=== PATIENT | female | born 1980 | race American Indian/Alaskan Native ===

== ENCOUNTER 2016-07-20 23:48 | Inpatient (IN) | payer BC, OTHER ==
[2016-07-21] MEDS ORDERED: Citric Acid/Sodium Citrate Solution 30 ML Cup ONE (00:08)
[2016-07-21] MEDS ORDERED: Lactated Ringers 1,000 ML ONE (00:08)
[2016-07-21] MEDS ORDERED: Metoclopramide 10 MG/2 ML SDV ONE (00:08)
[2016-07-21] MEDS ORDERED: Citric Acid/Sodium Citrate Solution 30 ML Cup PO ONE (00:20)
[2016-07-21] MEDS ORDERED: Metoclopramide 10 MG/2 ML SDV IVPUSH ONE (00:20)
[2016-07-21] MEDS ORDERED: Sodium Chloride 0.9% 10 ML Syringe FLUSH PRN (00:20)
--- NOTE | 2016-07-21 00:25 | PCM.LDHP ---
L&D History of Present Illness - General Date of Service: 07/21/16 Admit Problem/Dx: Patient Status Order with Admit Dx/Problem 07/21/16 00:20 Patient Status [ADT] Routine Patient Status: Admit to Inpatient Admission Diagnosis/Problem: Normal Reason for Admit: normal Nurse Unit Type: Labor and Delivery Admitting Physician: Telma Cosme Attending Physician: Telma Cosme Medicare 96 Hour Certification Statement: This Patient is Admitted for Inpatient Services and is Medically Appropriate and Meets Medical Necessity for Inpatient Admission. I Reasonably Expect the Patient Will Require Inpatient Services That Span a Period of Time Over 2 Midnights. My Rationale for Medically Necessary Inpatient Care Will Be Found in the Admission History & Physical and Progress Notes. I Reasonably Expect the Patient to be Discharged or Transferred Within 96 Hours After Admission to This [facility]. Admission Diagnosis/Problem Admission Diagnosis/Problem Normal Source of Information: Patient History Limitations: Reports: No limitations - History of Present Illness Introduction:: Patient is a 36 y/o - LC6 at 39 2/7 wks gestation who presents in labor and with SROM. States that this has had care with [facility]. Did have difficulty securing a referral out and so has not established care with an Ob in [facility], etc. Reports has been uncomplicated up to this point. Ob history as below. 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 Para: 6 LMP (Approximate): Endocrine/Metabolic History: Reports: Obesity/BMI 30+ - Past Surgical History GI Surgical History: Reports: Appendectomy, Cholecystectomy Female Surgical History: Reports: section (x4) Musculoskeletal Surgical History: Reports: Shoulder surgery Other Musculoskeletal Surgeries/Procedures:: hx of arthroscopy surgery on her shoulder for an infection Social & Family History - Family History Family Medical History: Noncontributory - Tobacco Use Smoking Status *Q: Former Smoker Packs/Tins Daily: 0 Used Tobacco, but Quit: Yes Month Tobacco Last Used: 2 years ago Second Hand Smoke Exposure: No - Caffeine Use Caffeine Use: Reports: Soda - Alcohol Use Alcohol Use History: No Days Per Week of Alcohol Use: 0 - Recreational Drug Use Recreational Drug Use: No H&P Review of Systems - Review of Systems: Review Of Systems: See Below General: Reports: no symptoms Pulmonary: Reports: No Symptoms Cardiovascular: Reports: no symptoms Gastrointestinal: Reports: No symptoms Genitourinary: Reports: no symptoms Musculoskeletal: Reports: no symptoms Neurological: Reports: No Symptoms L&D Exam - Exam Exam: See Below - Vital Signs Weight: 113.398 kg - OB Specific Contraction Intensity: Moderate to Strong movement: active heart tones: present heart tones per min: 145 Heart Rate (FHR) Variability: Moderate (6-25 bmp) Presentation: Vertex - Byrne Score Byrne Score Cervix Position: Midposition Byrne Score Consistency: Soft Byrne Score Effacement: >80% Byrne Score Dilation: > 5 cm Byrne Score 's Station: -2 Byrne Score Total: 10 - Exam General: alert, oriented, cooperative Lungs: Clear to auscultation, Normal respiratory effort Cardiovascular: regular rate, regular rhythm Abdomen: soft Genitourinary: Normal external exam Extremities: normal inspection Skin: warm, dry, intact - Patient Data Lab Results last 24 hrs: Laboratory Results - last 24 hr 07/21/16 Range/Units 00:10 WBC 18.58 H (3.98-10.04) K/mm3 RBC 4.28 (3.98-5.22) M/mm3 Hgb 10.9 L (11.2-15.7) gm/L Hct 33.9 L (34.1-44.9) % MCV 79.2 L (79.4-94.8) fl MCH 25.5 L (25.6-32.2) pg MCHC 32.2 (32.2-35.5) g/dl RDW Std Deviation 41.2 (36.4-46.3) fL Plt Count 272 (182-369) K/mm3 MPV 11.3 (9.4-12.3) fl Neut % (Auto) 70.5 (34.0-71.1) % Lymph % (Auto) 21.8 (19.3-51.7) % Cochran % (Auto) 6.5 (4.7-12.5) % Eos % (Auto) 0.4 L (0.7-5.8) Baso % (Auto) 0.1 (0.1-1.2) % Neut # 13.09 H (1.56-6.13) K/mm3 Lymph # 4.05 H (1.18-3.74) K/mm3 Cochran # 1.21 H (0.24-0.36) K/mm3 Eos # 0.08 (0.04-0.36) K/mm3 Baso # 0.02 (0.01-0.08) K/mm3 Result Diagrams: 07/21/16 00:10 - Problem List (1) 39 weeks gestation of SNOMED Code(s): 94598877 ICD Code: Z3A.39 - 39 WEEKS GESTATION OF Status: Acute Current Visit: Yes (2) History of SNOMED Code(s): 979668877 ICD Code: Z98.891 - HISTORY OF UTERINE SCAR FROM PREVIOUS SURGERY Status: Acute Current Visit: Yes (3) Normal labor SNOMED Code(s): 52205957 ICD Code: O80 - ENCOUNTER FOR FULL-TERM UNCOMPLICATED DELIVERY; Z37.9 - OUTCOME OF DELIVERY, UNSPECIFIED Status: Acute Current Visit: Yes (4) SROM (spontaneous rupture of membranes) SNOMED Code(s): 234321145 ICD Code: BCB3585 - Status: Acute Current Visit: Yes (5) Thick meconium stained amniotic fluid SNOMED Code(s): 299399279 ICD Code: P96.83 - MECONIUM STAINING Status: Acute Current Visit: Yes Problem List Initiated/Reviewed/Updated: Yes Orders Last 24hrs: Active Orders 24 hr Category Date Time Status Patient Status [ADT] Routine ADT 07/21/16 00:20 Ordered Communication Order [RC] ROUTINE Care 07/21/16 00:20 Ordered Heart Tones [RC] PER UNIT ROUTINE Care 07/21/16 00:20 Ordered Peripheral IV Care [RC] . DIRECTED Care 07/21/16 00:20 Ordered Procedure Site Prep Instruct [RC] ASDIRECTED Care 07/21/16 00:20 Ordered Verify Patient Consent Obtain [RC] PER UNIT ROUTINE Care 07/21/16 00:20 Ordered Vital Signs [RC] PFP Care 07/21/16 00:20 Ordered Nothing Per Oral Diet [DIET] Diet 07/21/16 Breakfast Ordered CBC WITH AUTO DIFF [HEME] Routine Lab 07/21/16 00:10 Received TYPE AND SCREEN [BBK] Stat Lab 07/21/16 00:10 Received Citric Acid/Sodium Citrate [Bicitra Solution] Med 07/21/16 00:20 Once 30 ml PO ONETIME ONE Lactated Ringers @ 125 MLS/HR(1000ml) Med 07/21/16 00:30 Ordered Lactated Ringers [Ringers, Lactated] 1,000 ml IV ASDIRECTED Metoclopramide [Reglan] Med 07/21/16 00:20 Once 10 mg IVPUSH ONETIME ONE Oxytocin [Pitocin] 20 unit Med 07/21/16 00:30 Ordered Lactated Ringers [Ringers, Lactated] 1,000 ml IV TITRATE Sodium Chloride 0.9% [Saline Flush] Med 07/21/16 00:20 Ordered 10 ml FLUSH ASDIRECTED PRN ceFAZolin [Ancef] 2 gm Med 07/21/16 00:20 Ordered Premix Bag 1 bag IV ONETIME Peripheral IV Insertion Adult [OM.PC] Routine Oth 07/21/16 00:20 Ordered Schedule Procedure [COMM] Per Unit Routine Oth 07/21/16 00:20 Ordered Resuscitation Status Routine Resus Stat 07/21/16 00:20 Ordered Medication Orders Citric Acid/Sodium Citrate (Bicitra Solution) 30 ml PO ONETIME ONE Stop: 07/21/16 00:21 Lactated Ringer's (Ringers, Lactated) 1,000 mls @ 125 mls/hr IV ASDIRECTED LENA Oxytocin 20 unit/ Lactated (Ringer's) 1,002 mls @ 500 mls/hr IV TITRATE LENA PRN Reason: Protocol Cefazolin Sodium/Dextrose 2 gm (/ Premix) 50 mls @ 100 mls/hr IV ONETIME ONE Stop: 07/21/16 00:49 Metoclopramide HCl (Reglan) 10 mg IVPUSH ONETIME ONE Stop: 07/21/16 00:21 Sodium Chloride (Saline Flush) 10 ml FLUSH ASDIRECTED PRN PRN Reason: Keep Vein Open Assessment/Plan Comment:: 36 y/o LC 6 at 39 weeks gestation presents with labor/SROM in setting of 4 prior c-sections; recommend proceeding to repeat * CBC and T&S * NPO * Ancef OCTOR * Consent reviewed and signed * Anesthesia and Pediatrics made aware * Will work on obtaining records in AM
[2016-07-21] MEDS ORDERED: ceFAZolin 2 GM in Premix Bag 1 BAG IV ONE (00:30)
[2016-07-21] MEDS ORDERED: Morphine PF 10 MG/10 ML SDV ONE (00:33)
[2016-07-21] MEDS ORDERED: Ondansetron 4 MG/2 ML SDV ONE (00:33)
[2016-07-21] MEDS ORDERED: Oxytocin 10 Units/1 ML SDV ONE (00:33)
[2016-07-21] MEDS ORDERED: ceFAZolin 1 GM Vial ONE (00:33)
[2016-07-21] MEDS ORDERED: Ondansetron 4 MG/2 ML SDV IVPUSH PRN (01:25)
[2016-07-21] MEDS ORDERED: fentaNYL 100 MCG/2 ML SDV IVPUSH PRN (01:25)
[2016-07-21] MEDS ORDERED: diphenhydrAMINE 50 MG/ML SDV IVPUSH PRN ×2 (01:25→02:16)
[2016-07-21] MEDS ORDERED: Meperidine PF 50 MG/ML Syringe ONE (01:30)
--- NOTE | 2016-07-21 01:38 | PCM.PREANE ---
Preanesthetic Assessment - Anesthesia/Transfusion/Family Hx Anesthesia History: Prior Anesthesia Without Reaction Type of Anesthesia Reaction: Unknown Family History of Anesthesia Reaction: No Transfusion History: Prior Transfusion Without Reaction Type of Transfusion Reactions: Reports: Unknown Intubation History: Unknown - Review of Systems General: No Symptoms Pulmonary: No Symptoms Cardiovascular: No Symptoms Gastrointestinal: No symptoms Neurological: No Symptoms Other: Reports: None - Physical Assessment NPO Status Date: 07/20/16 NPO Status Time: 21:00 Pulse: 98 O2 Sat by Pulse Oximetry: 98 Respiratory Rate: 22 Blood Pressure: 148/98 Height: 1.63 m Weight: 113.398 kg - Lab Values: Laboratory Last Values WBC 18.58 K/mm3 (3.98-10.04) H 07/21/16 00:10 RBC 4.28 M/mm3 (3.98-5.22) 07/21/16 00:10 Hgb 10.9 gm/L (11.2-15.7) L 07/21/16 00:10 Hct 33.9 % (34.1-44.9) L 07/21/16 00:10 MCV 79.2 fl (79.4-94.8) L 07/21/16 00:10 MCH 25.5 pg (25.6-32.2) L 07/21/16 00:10 MCHC 32.2 g/dl (32.2-35.5) 07/21/16 00:10 RDW Std Deviation 41.2 fL (36.4-46.3) 07/21/16 00:10 Plt Count 272 K/mm3 (182-369) 07/21/16 00:10 MPV 11.3 fl (9.4-12.3) 07/21/16 00:10 Neut % (Auto) 70.5 % (34.0-71.1) 07/21/16 00:10 Lymph % (Auto) 21.8 % (19.3-51.7) 07/21/16 00:10 Petroleum % (Auto) 6.5 % (4.7-12.5) 07/21/16 00:10 Eos % (Auto) 0.4 (0.7-5.8) L 07/21/16 00:10 Baso % (Auto) 0.1 % (0.1-1.2) 07/21/16 00:10 Neut # 13.09 K/mm3 (1.56-6.13) H 07/21/16 00:10 Lymph # 4.05 K/mm3 (1.18-3.74) H 07/21/16 00:10 Petroleum # 1.21 K/mm3 (0.24-0.36) H 07/21/16 00:10 Eos # 0.08 K/mm3 (0.04-0.36) 07/21/16 00:10 Baso # 0.02 K/mm3 (0.01-0.08) 07/21/16 00:10 Manual Slide Review Abnormal smear 07/21/16 00:10 Blood Type A POSITIVE 07/21/16 00:10 Gel Antibody Screen Negative 07/21/16 00:10 - Allergies Allergies/Adverse Reactions: Allergies Allergy/AdvReac Type Severity Reaction Status Date / Time No Known Allergies Allergy Verified 02/01/16 23:34 PreAnesthesia Questionnaire - Past Health History Medical/Surgical History: Denies Medical/Surgical History HEENT History: Reports: Other (see below) Other HEENT History: wears glasses Cardiovascular History: Reports: None Respiratory History: Reports: None Gastrointestinal History: Reports: Chronic constipation, Other (see below) 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: Other OB/BYN History: cysts on ovaries;blood clot to ovary, 8, para 6 Musculoskeletal History: Reports: None Endocrine/Metabolic History: Reports: Obesity/BMI 30+ Oncologic (Cancer) History: Reports: None - Past Surgical History HEENT Surgical History: Reports: None GI Surgical History: Reports: Cholecystectomy Female Surgical History: Reports: section Endocrine Surgical History: Reports: None Musculoskeletal Surgical History: Reports: Shoulder surgery Other Musculoskeletal Surgeries/Procedures:: hx of arthroscopy surgery on her shoulder for an infection - History Comment History Comment: multivitamin for home meds- 16 weeks - SUBSTANCE USE Smoking Status *Q: Former Smoker Tobacco Use Within Last Twelve Months: Cigarettes Second Hand Smoke Exposure: No Days Per Week of Alcohol Use: 0 Recreational Drug Use History: No - CURRENT (IN HOUSE) MEDS Current Meds: Current Medications Lactated Ringer's (Ringers, Lactated) 1,000 mls @ 125 mls/hr IV ASDIRECTED LENA Oxytocin 20 unit/ Lactated (Ringer's) 1,002 mls @ 500 mls/hr IV TITRATE LENA PRN Reason: Protocol Sodium Chloride (Saline Flush) 10 ml FLUSH ASDIRECTED PRN PRN Reason: Keep Vein Open Discontinued Medications Cefazolin Sodium (Ancef) Confirm Administered Dose 2 gm .ROUTE .STK-MED ONE Stop: 07/21/16 00:34 Citric Acid/Sodium Citrate (Bicitra Solution) Confirm Administered Dose 30 ml .ROUTE .STK-MED ONE Stop: 07/21/16 00:09 Citric Acid/Sodium Citrate (Bicitra Solution) 30 ml PO ONETIME ONE Stop: 07/21/16 00:21 Lactated Ringer's (Ringers, Lactated) Confirm Administered Dose 1,000 mls @ as directed .ROUTE .STK-MED ONE Stop: 07/21/16 00:09 Cefazolin Sodium/Dextrose 2 gm (/ Premix) 50 mls @ 100 mls/hr IV ONETIME ONE Stop: 07/21/16 00:59 Meperidine HCl (Demerol) Confirm Administered Dose 50 mg .ROUTE .STK-MED ONE Stop: 07/21/16 01:31 Metoclopramide HCl (Reglan) Confirm Administered Dose 10 mg .ROUTE .STK-MED ONE Stop: 07/21/16 00:09 Metoclopramide HCl (Reglan) 10 mg IVPUSH ONETIME ONE Stop: 07/21/16 00:21 Morphine Sulfate (Duramorph Pf) Confirm Administered Dose 10 mg .ROUTE .STK-MED ONE Stop: 07/21/16 00:34 Ondansetron HCl (Zofran) Confirm Administered Dose 4 mg .ROUTE .STK-MED ONE Stop: 07/21/16 00:34 Oxytocin (Pitocin) Confirm Administered Dose 10 unit .ROUTE .STK-MED ONE Stop: 07/21/16 00:34 Preanesthetic Assessment - ANESTHESIA/TRANSFUSION/FAMILY HX Anesthesia/Transfusion History: Prior Anesthesia (no prob), Prior Transfusion - PHYSICAL ASSESSMENT Height: 1.63 m Weight: 113.398 kg - LAB Values: Laboratory Last Values WBC 18.58 K/mm3 (3.98-10.04) H 07/21/16 00:10 RBC 4.28 M/mm3 (3.98-5.22) 07/21/16 00:10 Hgb 10.9 gm/L (11.2-15.7) L 07/21/16 00:10 Hct 33.9 % (34.1-44.9) L 07/21/16 00:10 MCV 79.2 fl (79.4-94.8) L 07/21/16 00:10 MCH 25.5 pg (25.6-32.2) L 07/21/16 00:10 MCHC 32.2 g/dl (32.2-35.5) 07/21/16 00:10 RDW Std Deviation 41.2 fL (36.4-46.3) 07/21/16 00:10 Plt Count 272 K/mm3 (182-369) 07/21/16 00:10 MPV 11.3 fl (9.4-12.3) 07/21/16 00:10 Neut % (Auto) 70.5 % (34.0-71.1) 07/21/16 00:10 Lymph % (Auto) 21.8 % (19.3-51.7) 07/21/16 00:10 Petroleum % (Auto) 6.5 % (4.7-12.5) 07/21/16 00:10 Eos % (Auto) 0.4 (0.7-5.8) L 07/21/16 00:10 Baso % (Auto) 0.1 % (0.1-1.2) 07/21/16 00:10 Neut # 13.09 K/mm3 (1.56-6.13) H 07/21/16 00:10 Lymph # 4.05 K/mm3 (1.18-3.74) H 07/21/16 00:10 Petroleum # 1.21 K/mm3 (0.24-0.36) H 07/21/16 00:10 Eos # 0.08 K/mm3 (0.04-0.36) 07/21/16 00:10 Baso # 0.02 K/mm3 (0.01-0.08) 07/21/16 00:10 Manual Slide Review Abnormal smear 07/21/16 00:10 Blood Type A POSITIVE 07/21/16 00:10 Gel Antibody Screen Negative 07/21/16 00:10 - ALLERGIES Allergies/Adverse Reactions: Allergies Allergy/AdvReac Type Severity Reaction Status Date / Time No Known Allergies Allergy Verified 02/01/16 23:34
--- NOTE | 2016-07-21 01:56 | PCM.OPNOTE ---
- General Post-Op/Procedure Note Date of Surgery/Procedure: 07/21/16 Operative Procedure(s): Repeat low transverse Findings: * Minimal adhesions between the rectus and fascia. Somewhat difficult to find peritoneal entry due to adhesions between the rectus muscles. Minimal adhesions between bladder and uterus. Lower uterine segment relatively well preserved given history of 4 prior c-sections. * Baby girl in a vertex presentation with APGARS of 5 & 8, weight of 8 lbs 0 oz Pre Op Diagnosis: Hx of x4. Labor / SROM. Thick meconium stained amniotic fluid. Morbid obesity Post-Op Diagnosis: Same Anesthesia Technique: Spinal Primary Surgeon: Telma Cosme Secondary Surgeon: Allison Potter Anesthesia Provider: Uli Romero Pathology: Cord blood collected. Placenta discarded. Fluid Replacement, Intraop: 1,500 Output, Urine Amount: 225 EBL in mLs: 800 Complications: None Condition: Good Free Text/Narrative:: The risks, benefits, indications, potential complications, and alternatives were explained to the patient and informed consent obtained. After induction of anesthesia, the patient was placed in a supine position and then draped and prepped in the usual sterile manner. A Pfannenstiel incision was made and carried down through the subcutaneous tissue to the fascia. Fascial incision was made and extended transversely. The fascia was from the underlying rectus tissue superiorly and inferiorly. The peritoneum was identified and entered. Peritoneal incision was extended longitudinally. The utero-vesical peritoneal reflection was incised transversely and the bladder flap was bluntly freed from the lower uterine segment. A low transverse uterine incision was made sharply with a scalpel and extended bluntly in a cephalocaudad direction. A baby girl was delivered from a vertex presentation with APGARS as above. After the umbilical cord was clamped and cut cord blood was obtained for evaluation. The placenta was removed intact and appeared normal. The uterus was exteriorized and cleared of clots. The uterine outline, tubes and ovaries appeared normal. The uterine incision was closed with running locked sutures of 0 Vicryl. Hemostasis was obtained with a second imbricating layer of 0 vicryl. The uterus was then placed back into the abdomen. The infracolic gutters were cleared of blood clots. The fascia was then reapproximated with running sutures of 1 PDS. The sucutaneous tissue was irrigated with sterile warm normal saline, hemostasis obtained with cautery. This layer was closed with a running 0 vicryl. The skin was reapproximated with running Subcuticular 4-0 monocryl sutures. Instrument, sponge, and needle counts were correct prior the abdominal closure and at the conclusion of the case.
--- NOTE | 2016-07-21 01:56 | PCM.PREANE ---
Preanesthetic Assessment - Anesthesia/Transfusion/Family Hx Anesthesia History: Prior Anesthesia Without Reaction Family History of Anesthesia Reaction: No Transfusion History: Prior Transfusion Without Reaction Type of Transfusion Reactions: Reports: Unknown Intubation History: Unknown - Review of Systems General: No Symptoms Pulmonary: No Symptoms Cardiovascular: No Symptoms Gastrointestinal: No symptoms Neurological: No Symptoms Other: Reports: None - Physical Assessment NPO Status Date: 07/20/16 NPO Status Time: 21:00 Pulse: 98 O2 Sat by Pulse Oximetry: 98 Respiratory Rate: 22 Blood Pressure: 148/98 Vital Signs: Last Vital Signs Temp Pulse 98 07/21/16 01:38 Resp 22 H 07/21/16 01:38 BP 148/98 H 07/21/16 01:38 Pulse Ox 98 07/21/16 01:38 Height: 1.63 m Weight: 113.398 kg ASA Class: 2E Mental Status: Alert & Oriented x3 Airway Class: Mallampati = 2 Dentition: Reports: Normal Dentition Thyro-Mental Finger Breadths: 3 Mouth Opening Finger Breadths: 3 ROM/Head Extension: Full Lungs: Clear to auscultation, Normal respiratory effort Cardiovascular: Regular Rate, Regular Rhythm - Lab Values: Laboratory Last Values WBC 18.58 K/mm3 (3.98-10.04) H 07/21/16 00:10 RBC 4.28 M/mm3 (3.98-5.22) 07/21/16 00:10 Hgb 10.9 gm/L (11.2-15.7) L 07/21/16 00:10 Hct 33.9 % (34.1-44.9) L 07/21/16 00:10 MCV 79.2 fl (79.4-94.8) L 07/21/16 00:10 MCH 25.5 pg (25.6-32.2) L 07/21/16 00:10 MCHC 32.2 g/dl (32.2-35.5) 07/21/16 00:10 RDW Std Deviation 41.2 fL (36.4-46.3) 07/21/16 00:10 Plt Count 272 K/mm3 (182-369) 07/21/16 00:10 MPV 11.3 fl (9.4-12.3) 07/21/16 00:10 Neut % (Auto) 70.5 % (34.0-71.1) 07/21/16 00:10 Lymph % (Auto) 21.8 % (19.3-51.7) 07/21/16 00:10 Charlton % (Auto) 6.5 % (4.7-12.5) 07/21/16 00:10 Eos % (Auto) 0.4 (0.7-5.8) L 07/21/16 00:10 Baso % (Auto) 0.1 % (0.1-1.2) 07/21/16 00:10 Neut # 13.09 K/mm3 (1.56-6.13) H 07/21/16 00:10 Lymph # 4.05 K/mm3 (1.18-3.74) H 07/21/16 00:10 Charlton # 1.21 K/mm3 (0.24-0.36) H 07/21/16 00:10 Eos # 0.08 K/mm3 (0.04-0.36) 07/21/16 00:10 Baso # 0.02 K/mm3 (0.01-0.08) 07/21/16 00:10 Manual Slide Review Abnormal smear 07/21/16 00:10 Blood Type A POSITIVE 07/21/16 00:10 Gel Antibody Screen Negative 07/21/16 00:10 - Allergies Allergies/Adverse Reactions: Allergies Allergy/AdvReac Type Severity Reaction Status Date / Time No Known Allergies Allergy Verified 02/01/16 23:34 - Blood Blood Available: No Product(s) Available: None - Acknowledgements Anesthesia Type Planned: Spinal Pt an Appropriate Candidate for the Planned Anesthesia: Yes Alternatives and Risks of Anesthesia Discussed w Pt/Guardian: Yes Pt/Guardian Understands and Agrees with Anesthesia Plan: Yes PreAnesthesia Questionnaire - Past Health History Medical/Surgical History: Denies Medical/Surgical History HEENT History: Reports: Other (see below) Other HEENT History: wears glasses Cardiovascular History: Reports: None Respiratory History: Reports: None Gastrointestinal History: Reports: Chronic constipation, Other (see below) 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: Other OB/BYN History: cysts on ovaries;blood clot to ovary, 8, para 6 Musculoskeletal History: Reports: None Endocrine/Metabolic History: Reports: Obesity/BMI 30+ Oncologic (Cancer) History: Reports: None - Past Surgical History GI Surgical History: Reports: Appendectomy, Cholecystectomy Female Surgical History: Reports: section (x4) Musculoskeletal Surgical History: Reports: Shoulder surgery Other Musculoskeletal Surgeries/Procedures:: hx of arthroscopy surgery on her shoulder for an infection - History Comment History Comment: multivitamin for home meds- 16 weeks - SUBSTANCE USE Smoking Status *Q: Former Smoker Tobacco Use Within Last Twelve Months: Cigarettes Second Hand Smoke Exposure: No Days Per Week of Alcohol Use: 0 Recreational Drug Use History: No - CURRENT (IN HOUSE) MEDS Current Meds: Current Medications Diphenhydramine HCl (Benadryl) 25 mg IVPUSH Q6H PRN PRN Reason: Pruritis Lactated Ringer's (Ringers, Lactated) 1,000 mls @ 125 mls/hr IV ASDIRECTED LENA Oxytocin 20 unit/ Lactated (Ringer's) 1,002 mls @ 500 mls/hr IV TITRATE LENA PRN Reason: Protocol Ondansetron HCl (Zofran) 4 mg IVPUSH ONETIME PRN PRN Reason: Nausea/Vomiting Sodium Chloride (Saline Flush) 10 ml FLUSH ASDIRECTED PRN PRN Reason: Keep Vein Open Discontinued Medications Cefazolin Sodium (Ancef) Confirm Administered Dose 2 gm .ROUTE .STK-MED ONE Stop: 07/21/16 00:34 Citric Acid/Sodium Citrate (Bicitra Solution) Confirm Administered Dose 30 ml .ROUTE .STK-MED ONE Stop: 07/21/16 00:09 Citric Acid/Sodium Citrate (Bicitra Solution) 30 ml PO ONETIME ONE Stop: 07/21/16 00:21 Fentanyl (Sublimaze) 50 mcg IVPUSH Q5M PRN PRN Reason: Pain Stop: 07/21/16 01:41 Lactated Ringer's (Ringers, Lactated) Confirm Administered Dose 1,000 mls @ as directed .ROUTE .STK-MED ONE Stop: 07/21/16 00:09 Cefazolin Sodium/Dextrose 2 gm (/ Premix) 50 mls @ 100 mls/hr IV ONETIME ONE Stop: 07/21/16 00:59 Meperidine HCl (Demerol) Confirm Administered Dose 50 mg .ROUTE .STK-MED ONE Stop: 07/21/16 01:31 Metoclopramide HCl (Reglan) Confirm Administered Dose 10 mg .ROUTE .STK-MED ONE Stop: 07/21/16 00:09 Metoclopramide HCl (Reglan) 10 mg IVPUSH ONETIME ONE Stop: 07/21/16 00:21 Morphine Sulfate (Duramorph Pf) Confirm Administered Dose 10 mg .ROUTE .STK-MED ONE Stop: 07/21/16 00:34 Ondansetron HCl (Zofran) Confirm Administered Dose 4 mg .ROUTE .STK-MED ONE Stop: 07/21/16 00:34 Oxytocin (Pitocin) Confirm Administered Dose 10 unit .ROUTE .STK-MED ONE Stop: 07/21/16 00:34 Preanesthetic Assessment - ANESTHESIA/TRANSFUSION/FAMILY HX Anesthesia/Transfusion History: Prior Anesthesia (no prob), Prior Transfusion Type of Transfusion Reactions: Reports: Unknown - REVIEW OF SYSTEMS Other: Reports: None - PHYSICAL ASSESSMENT HR: 98 O2 Sat by Pulse Oximetry: 98 RR: 22 BP: 148/98 Vital Signs: Last Vital Signs Temp Pulse 98 07/21/16 01:38 Resp 22 H 07/21/16 01:38 BP 148/98 H 07/21/16 01:38 Pulse Ox 98 07/21/16 01:38 Height: 1.63 m Weight: 113.398 kg NPO Status Date: 07/20/16 NPO Status Time: 21:00 - LAB Values: Laboratory Last Values WBC 18.58 K/mm3 (3.98-10.04) H 07/21/16 00:10 RBC 4.28 M/mm3 (3.98-5.22) 07/21/16 00:10 Hgb 10.9 gm/L (11.2-15.7) L 07/21/16 00:10 Hct 33.9 % (34.1-44.9) L 07/21/16 00:10 MCV 79.2 fl (79.4-94.8) L 07/21/16 00:10 MCH 25.5 pg (25.6-32.2) L 07/21/16 00:10 MCHC 32.2 g/dl (32.2-35.5) 07/21/16 00:10 RDW Std Deviation 41.2 fL (36.4-46.3) 07/21/16 00:10 Plt Count 272 K/mm3 (182-369) 07/21/16 00:10 MPV 11.3 fl (9.4-12.3) 07/21/16 00:10 Neut % (Auto) 70.5 % (34.0-71.1) 07/21/16 00:10 Lymph % (Auto) 21.8 % (19.3-51.7) 07/21/16 00:10 Charlton % (Auto) 6.5 % (4.7-12.5) 07/21/16 00:10 Eos % (Auto) 0.4 (0.7-5.8) L 07/21/16 00:10 Baso % (Auto) 0.1 % (0.1-1.2) 07/21/16 00:10 Neut # 13.09 K/mm3 (1.56-6.13) H 07/21/16 00:10 Lymph # 4.05 K/mm3 (1.18-3.74) H 07/21/16 00:10 Charlton # 1.21 K/mm3 (0.24-0.36) H 07/21/16 00:10 Eos # 0.08 K/mm3 (0.04-0.36) 07/21/16 00:10 Baso # 0.02 K/mm3 (0.01-0.08) 07/21/16 00:10 Manual Slide Review Abnormal smear 07/21/16 00:10 Blood Type A POSITIVE 07/21/16 00:10 Gel Antibody Screen Negative 07/21/16 00:10 - ALLERGIES Allergies/Adverse Reactions: Allergies Allergy/AdvReac Type Severity Reaction Status Date / Time No Known Allergies Allergy Verified 02/01/16 23:34
--- NOTE | 2016-07-21 01:57 | PCM.POSTAN ---
POST ANESTHESIA ASSESSMENT - MENTAL STATUS Mental Status: alert, oriented - VITAL SIGNS Pulse Rate: 83 SaO2: 97 Resp Rate: 16 Blood Pressure: 129/70 Temperature: 36.7 C - RESPIRATORY Respiratory Status: respiratory rate WNL, airway patent, O2 saturation stable - CARDIOVASCULAR CV Status: pulse rate WNL, blood pressure stable - GASTROINTESTINAL GI Status: no symptoms - PAIN Pain Score: 0 - POST OP HYDRATION Hydration Status: adequate & stable
[2016-07-21] MEDS: Lactated Ringers 1,000 ML IV SCH ×2 (02:08→02:16)
[2016-07-21] MEDS ORDERED: Lanolin 100% Cream 7 GM Tube TOP PRN (02:16)
[2016-07-21] MEDS ORDERED: Dextrose 5%-Lactated Ringers 1,000 ML IV SCH (02:16)
[2016-07-21] MEDS ORDERED: Ibuprofen 600 MG Tab PO PRN ×2 (02:16→20:30)
[2016-07-21] MEDS ORDERED: Ketorolac 30 MG/ML SDV IVPUSH SCH ×2 (02:16→02:30)
[2016-07-21] MEDS ORDERED: Naloxone 0.4 MG/ML SDV IVPUSH PRN (02:16)
[2016-07-21] MEDS ORDERED: Flu Vaccine 2016-17(36Mos+)/PF 60 MCG/0.5 ML Syringe IM ONE (04:02)
[2016-07-21] MEDS: Ketorolac 30 MG/ML SDV IVPUSH SCH ×3 (08:16→21:15)
[2016-07-21] MEDS: Acetaminophen/oxyCODONE 325-5 MG Tab PO PRN (18:25)
[2016-07-22] MEDS: Acetaminophen/oxyCODONE 325-5 MG Tab PO PRN ×4 (00:05→14:08)
[2016-07-22] MEDS ORDERED: Ibuprofen 600 MG Tab PO PRN (03:01)
--- NOTE | 2016-07-22 06:40 | PCM.PNPP ---
- General Info Date of Service: 07/22/16 Functional Status: Reports: pain controlled, tolerating diet, ambulating, urinating - Review of Systems General: Reports: No Symptoms Pulmonary: Reports: no symptoms Cardiovascular: Reports: No Symptoms Gastrointestinal: Reports: Abdominal pain (well controlled with medications ) Genitourinary: Reports: no symptoms Musculoskeletal: Reports: no symptoms Neurological: Reports: No Symptoms - Patient Data Vital Signs - most recent: Last Vital Signs Temp 36.3 C 07/22/16 04:00 Pulse 80 07/22/16 04:00 Resp 18 07/22/16 04:00 BP 104/44 L 07/22/16 04:00 Pulse Ox 97 07/22/16 04:00 Weight - most recent: 113.398 kg I&O - last 24 hours: Intake & Output 07/21/16 07/21/16 07/22/16 14:59 22:59 06:59 Intake Total 2900 1810 Output Total 825 675 Balance 2075 1135 Lab Results - last 24 hrs: Laboratory Results - last 24 hr 07/21/16 07/21/16 07/21/16 Range/Units 00:10 12:08 12:08 WBC (3.98-10.04) K/mm3 RBC (3.98-5.22) M/mm3 Hgb (11.2-15.7) gm/L Hct (34.1-44.9) % MCV (79.4-94.8) fl MCH (25.6-32.2) pg MCHC (32.2-35.5) g/dl RDW Std Deviation (36.4-46.3) fL Plt Count (182-369) K/mm3 MPV (9.4-12.3) fl Hep Bs Antigen Nonreactive (NONREACTIVE) HIV-1 Ab Rapid Screen Negative (NEGATIVE) Rubella IgG Antibody Reactive (pos) (REACTIVE) Blood Type A POSITIVE Gel Antibody Screen Negative 07/22/16 Range/Units 04:43 WBC 16.76 H (3.98-10.04) K/mm3 RBC 3.37 L (3.98-5.22) M/mm3 Hgb 8.4 L (11.2-15.7) gm/L Hct 27.2 L (34.1-44.9) % MCV 80.7 (79.4-94.8) fl MCH 24.9 L (25.6-32.2) pg MCHC 30.9 L (32.2-35.5) g/dl RDW Std Deviation 42.8 (36.4-46.3) fL Plt Count 223 (182-369) K/mm3 MPV 11.5 (9.4-12.3) fl Hep Bs Antigen (NONREACTIVE) HIV-1 Ab Rapid Screen (NEGATIVE) Rubella IgG Antibody (REACTIVE) Blood Type Gel Antibody Screen Med Orders - Current: Current Medications Diphenhydramine HCl (Benadryl) 25 mg IVPUSH Q6H PRN PRN Reason: Pruritis Diphenhydramine HCl (Benadryl) 25 mg IVPUSH Q6H PRN PRN Reason: Itching or Nausea Emollient Ointment (Lansinoh Hpa) 0 gm TOP ASDIRECTED PRN PRN Reason: Sore Nipples Ibuprofen (Motrin) 600 mg PO Q6H PRN PRN Reason: mild pain or fever Naloxone HCl (Narcan) 0.1 mg IVPUSH SEECOMMENT PRN PRN Reason: Respiratory Depression Oxycodone/Acetaminophen (Percocet 325-5 Mg) 2 tab PO Q4H PRN PRN Reason: Pain (moderate 4-6) Last Admin: 07/22/16 05:55 Dose: 2 tab Discontinued Medications Cefazolin Sodium (Ancef) Confirm Administered Dose 2 gm .ROUTE .STK-MED ONE Stop: 07/21/16 00:34 Citric Acid/Sodium Citrate (Bicitra Solution) Confirm Administered Dose 30 ml .ROUTE .STK-MED ONE Stop: 07/21/16 00:09 Last Admin: 07/21/16 02:06 Dose: Not Given Citric Acid/Sodium Citrate (Bicitra Solution) 30 ml PO ONETIME ONE Stop: 07/21/16 00:21 Last Admin: 07/21/16 02:05 Dose: 30 ml Fentanyl (Sublimaze) 50 mcg IVPUSH Q5M PRN PRN Reason: Pain Stop: 07/21/16 01:41 Lactated Ringer's (Ringers, Lactated) Confirm Administered Dose 1,000 mls @ as directed .ROUTE .STK-MED ONE Stop: 07/21/16 00:09 Last Admin: 07/21/16 02:21 Dose: Not Given Lactated Ringer's (Ringers, Lactated) 1,000 mls @ 125 mls/hr IV ASDIRECTED [facility] Last Admin: 07/21/16 02:16 Dose: 125 mls/hr Oxytocin 20 unit/ Lactated (Ringer's) 1,002 mls @ 500 mls/hr IV TITRATE LENA PRN Reason: Protocol Cefazolin Sodium/Dextrose 2 gm (/ Premix) 50 mls @ 100 mls/hr IV ONETIME ONE Stop: 07/21/16 00:59 Last Admin: 07/21/16 09:35 Dose: Not Given Dextrose/Lactated Ringer's (Dextrose 5%-Lactated Ringers) 1,000 mls @ 125 mls/ hr IV ASDIRECTED [facility] Stop: 07/21/16 10:15 Last Admin: 07/21/16 04:29 Dose: 125 mls/hr Ibuprofen (Motrin) 600 mg PO Q6H PRN PRN Reason: mild pain or fever Ibuprofen (Motrin) 600 mg PO Q6H PRN PRN Reason: mild pain or fever Influenza Virus Vaccine (Fluzone/Fluarix Vaccine) 60 mcg IM .ONCE ONE Stop: 07/21/16 04:03 Last Admin: 07/21/16 08:25 Dose: Not Given Ketorolac Tromethamine (Toradol) 30 mg IVPUSH Q6H [facility] Stop: 07/21/16 14:17 Ketorolac Tromethamine (Toradol) 30 mg IVPUSH Q6H [facility] Stop: 07/21/16 14:31 Ketorolac Tromethamine (Toradol) 30 mg IVPUSH Q6H [facility] Stop: 07/21/16 19:31 Last Admin: 07/21/16 21:15 Dose: 30 mg Meperidine HCl (Demerol) Confirm Administered Dose 50 mg .ROUTE .STK-MED ONE Stop: 07/21/16 01:31 Metoclopramide HCl (Reglan) Confirm Administered Dose 10 mg .ROUTE .STK-MED ONE Stop: 07/21/16 00:09 Last Admin: 07/21/16 02:06 Dose: Not Given Metoclopramide HCl (Reglan) 10 mg IVPUSH ONETIME ONE Stop: 07/21/16 00:21 Last Admin: 07/21/16 02:05 Dose: 10 mg Morphine Sulfate (Duramorph Pf) Confirm Administered Dose 10 mg .ROUTE .STK-MED ONE Stop: 07/21/16 00:34 Ondansetron HCl (Zofran) Confirm Administered Dose 4 mg .ROUTE .STK-MED ONE Stop: 07/21/16 00:34 Ondansetron HCl (Zofran) 4 mg IVPUSH ONETIME PRN PRN Reason: Nausea/Vomiting Oxytocin (Pitocin) Confirm Administered Dose 10 unit .ROUTE .STK-MED ONE Stop: 07/21/16 00:34 Sodium Chloride (Saline Flush) 10 ml FLUSH ASDIRECTED PRN PRN Reason: Keep Vein Open - Infant Interaction Disposition, : in Room with Family Infant Interaction: Holding Infant Feeding: Breastfed ; Nursed Well Support Person: - Recovery Exam Fundal Tone: Firm Fundal Level: 1 Fingerbreadths Below Umbilicus Fundal Placement: Midline Lochia Amount: Moderate Lochia Color: Rubra/Red Perineum Description: Intact, Minimal Bruising/Swelling Episiotomy/Laceration: None Bladder Status: Voiding Urinary Elimination: Voided - Exam General: alert, oriented, cooperative Lungs: Clear to auscultation, Normal respiratory effort Cardiovascular: Regular Rate, Regular Rhythm Abdomen: soft, tenderness (appropriate post op) Extremities: edema Skin: warm, dry, intact Wound/Incisions: healing well, no drainage - Problem List & Annotations (1) 39 weeks gestation of SNOMED Code(s): 34814252 Code(s): Z3A.39 - 39 WEEKS GESTATION OF Status: Acute (2) History of SNOMED Code(s): 867588805 Code(s): Z98.891 - HISTORY OF UTERINE SCAR FROM PREVIOUS SURGERY Status: Acute (3) Normal labor SNOMED Code(s): 56535812 Code(s): O80 - ENCOUNTER FOR FULL-TERM UNCOMPLICATED DELIVERY; Z37.9 - OUTCOME OF DELIVERY, UNSPECIFIED Status: Acute (4) SROM (spontaneous rupture of membranes) SNOMED Code(s): 078080779 Code(s): XKR9125 - Status: Acute (5) Thick meconium stained amniotic fluid SNOMED Code(s): 683159064 Code(s): P96.83 - MECONIUM STAINING Status: Acute (6) S/P repeat low transverse SNOMED Code(s): 456037638, 151077385, 054451334, 443857715 Code(s): Z98.891 - HISTORY OF UTERINE SCAR FROM PREVIOUS SURGERY Status: Acute - Problem List Review Problem List Initiated/Reviewed/Updated: Yes - My Orders Last 24 Hours: My Active Orders 07/21/16 12:08 RPR [REF] Routine 07/21/16 Breakfast Regular Diet [DIET] 07/22/16 03:01 Ibuprofen [Motrin] 600 mg PO Q6H PRN - Assessment Assessment:: 36 y/o G7 now P7, LC7 (one set of twins and one child lost to SIDS) who is POD# 1 from Repeat (5th ) - Plan Plan:: S/p * Routine cares * Encourage breast feeding * Patient desires discharge today, patient doing well and so will complete this for her * Follow up in 1-2 weeks for incision check
--- NOTE | 2016-07-22 12:22 | PCM.DCSUM1 ---
Discharge Summary - Discharge Data Discharge Date: 07/22/16 Discharge Disposition: Home, Self-Care 01 Condition: Good - Discharge Diagnosis/Problem(s) (1) 39 weeks gestation of SNOMED Code(s): 89500666 ICD Code: Z3A.39 - 39 WEEKS GESTATION OF Status: Acute (2) History of SNOMED Code(s): 071092119 ICD Code: Z98.891 - HISTORY OF UTERINE SCAR FROM PREVIOUS SURGERY Status: Acute (3) Normal labor SNOMED Code(s): 65105290 ICD Code: O80 - ENCOUNTER FOR FULL-TERM UNCOMPLICATED DELIVERY; Z37.9 - OUTCOME OF DELIVERY, UNSPECIFIED Status: Acute (4) SROM (spontaneous rupture of membranes) SNOMED Code(s): 913433161 ICD Code: VFX0506 - Status: Acute (5) Thick meconium stained amniotic fluid SNOMED Code(s): 374839638 ICD Code: P96.83 - MECONIUM STAINING Status: Acute (6) S/P repeat low transverse SNOMED Code(s): 193059750, 757892108, 370744412, 238126608 ICD Code: Z98.891 - HISTORY OF UTERINE SCAR FROM PREVIOUS SURGERY Status: Acute - Patient Summary/Data Operative Procedure(s) Performed: Repeat low transverse Complications: None Consults: None Recommended Follow-up Testing/Procedures: Follow up in 1-2 weeks for incision check Hospital Course: Patient is a 36 y/o LC6 (one set of twins, one demise of a different child due to SIDS) who presented at 39 weeks with SROM/Labor. She had a history of 4 prior c-sections and so was taken for urgent repeat . This was uncomplicated. See procedure note. she did well and was discharged home on POD#1. - Patient Instructions Diet: Regular Diet as Tolerated Activity: No Lifting Over 10 Pounds Activity, Other: Pelvic rest for 6 weeks Driving: Do Not Drive (While taking narcotics ) Showering/Bathing: May Shower, No Tub Bathing/Swimming Wound/Incision Care: Keep Operative Site/Wound Site Clean and Dry Notify Provider of: Fever, Increased Pain, Swelling and Redness, Drainage, Nausea and/or Vomiting - Discharge Plan Prescriptions/Med Rec: Acetaminophen/oxyCODONE [Percocet 325-5 MG] 2 tab PO Q4H PRN #30 tablet PRN Reason: Pain Home Medications: Home Meds Acetaminophen/oxyCODONE [Percocet 325-5 MG] 2 tab PO Q4H PRN #30 tablet [Rx] Ibuprofen [IJD: Ibuprofen] 600 mg PO Q6H PRN #0 tablet 07/22/16 [Rx] Patient Handouts: Delivery, Care After Referrals: Telma Cosme MD [Primary Care Provider] - (1-2 weeks for incision check ) - Discharge Summary/Plan Comment DC Time >30 min.: No - Patient Data Vitals - Most Recent: Last Vital Signs Temp 36.3 C 07/22/16 04:00 Pulse 80 07/22/16 04:00 Resp 18 07/22/16 04:00 BP 104/44 L 07/22/16 04:00 Pulse Ox 97 07/22/16 04:00 Weight - Most Recent: 113.398 kg I&O - Last 24 hours: Intake & Output 07/21/16 07/22/16 07/22/16 22:59 06:59 14:59 Intake Total 1810 0 Output Total 675 Balance 1135 0 Lab Results - Last 24 hrs: Laboratory Results - last 24 hr 07/21/16 07/21/16 07/21/16 Range/Units 12:08 12:08 12:08 WBC (3.98-10.04) K/mm3 RBC (3.98-5.22) M/mm3 Hgb (11.2-15.7) gm/L Hct (34.1-44.9) % MCV (79.4-94.8) fl MCH (25.6-32.2) pg MCHC (32.2-35.5) g/dl RDW Std Deviation (36.4-46.3) fL Plt Count (182-369) K/mm3 MPV (9.4-12.3) fl RPR Non-reac (Non-Reac) Hep Bs Antigen Nonreactive (NONREACTIVE) HIV-1 Ab Rapid Screen Negative (NEGATIVE) Rubella IgG Antibody Reactive (pos) (REACTIVE) 07/22/16 Range/Units 04:43 WBC 16.76 H (3.98-10.04) K/mm3 RBC 3.37 L (3.98-5.22) M/mm3 Hgb 8.4 L (11.2-15.7) gm/L Hct 27.2 L (34.1-44.9) % MCV 80.7 (79.4-94.8) fl MCH 24.9 L (25.6-32.2) pg MCHC 30.9 L (32.2-35.5) g/dl RDW Std Deviation 42.8 (36.4-46.3) fL Plt Count 223 (182-369) K/mm3 MPV 11.5 (9.4-12.3) fl RPR (Non-Reac) Hep Bs Antigen (NONREACTIVE) HIV-1 Ab Rapid Screen (NEGATIVE) Rubella IgG Antibody (REACTIVE) Med Orders - Current: Current Medications Diphenhydramine HCl (Benadryl) 25 mg IVPUSH Q6H PRN PRN Reason: Pruritis Diphenhydramine HCl (Benadryl) 25 mg IVPUSH Q6H PRN PRN Reason: Itching or Nausea Emollient Ointment (Lansinoh Hpa) 0 gm TOP ASDIRECTED PRN PRN Reason: Sore Nipples Ibuprofen (Motrin) 600 mg PO Q6H PRN PRN Reason: mild pain or fever Naloxone HCl (Narcan) 0.1 mg IVPUSH SEECOMMENT PRN PRN Reason: Respiratory Depression Oxycodone/Acetaminophen (Percocet 325-5 Mg) 2 tab PO Q4H PRN PRN Reason: Pain (moderate 4-6) Last Admin: 07/22/16 09:57 Dose: 2 tab Discontinued Medications Cefazolin Sodium (Ancef) Confirm Administered Dose 2 gm .ROUTE .STK-MED ONE Stop: 07/21/16 00:34 Citric Acid/Sodium Citrate (Bicitra Solution) Confirm Administered Dose 30 ml .ROUTE .STK-MED ONE Stop: 07/21/16 00:09 Last Admin: 07/21/16 02:06 Dose: Not Given Citric Acid/Sodium Citrate (Bicitra Solution) 30 ml PO ONETIME ONE Stop: 07/21/16 00:21 Last Admin: 07/21/16 02:05 Dose: 30 ml Fentanyl (Sublimaze) 50 mcg IVPUSH Q5M PRN PRN Reason: Pain Stop: 07/21/16 01:41 Lactated Ringer's (Ringers, Lactated) Confirm Administered Dose 1,000 mls @ as directed .ROUTE .STK-MED ONE Stop: 07/21/16 00:09 Last Admin: 07/21/16 02:21 Dose: Not Given Lactated Ringer's (Ringers, Lactated) 1,000 mls @ 125 mls/hr IV ASDIRECTED [facility] Last Admin: 07/21/16 02:16 Dose: 125 mls/hr Oxytocin 20 unit/ Lactated (Ringer's) 1,002 mls @ 500 mls/hr IV TITRATE LENA PRN Reason: Protocol Cefazolin Sodium/Dextrose 2 gm (/ Premix) 50 mls @ 100 mls/hr IV ONETIME ONE Stop: 07/21/16 00:59 Last Admin: 07/21/16 09:35 Dose: Not Given Dextrose/Lactated Ringer's (Dextrose 5%-Lactated Ringers) 1,000 mls @ 125 mls/ hr IV ASDIRECTED [facility] Stop: 07/21/16 10:15 Last Admin: 07/21/16 04:29 Dose: 125 mls/hr Ibuprofen (Motrin) 600 mg PO Q6H PRN PRN Reason: mild pain or fever Ibuprofen (Motrin) 600 mg PO Q6H PRN PRN Reason: mild pain or fever Influenza Virus Vaccine (Fluzone/Fluarix Vaccine) 60 mcg IM .ONCE ONE Stop: 07/21/16 04:03 Last Admin: 07/21/16 08:25 Dose: Not Given Ketorolac Tromethamine (Toradol) 30 mg IVPUSH Q6H [facility] Stop: 07/21/16 14:17 Ketorolac Tromethamine (Toradol) 30 mg IVPUSH Q6H [facility] Stop: 07/21/16 14:31 Ketorolac Tromethamine (Toradol) 30 mg IVPUSH Q6H [facility] Stop: 07/21/16 19:31 Last Admin: 07/21/16 21:15 Dose: 30 mg Meperidine HCl (Demerol) Confirm Administered Dose 50 mg .ROUTE .STK-MED ONE Stop: 07/21/16 01:31 Metoclopramide HCl (Reglan) Confirm Administered Dose 10 mg .ROUTE .STK-MED ONE Stop: 07/21/16 00:09 Last Admin: 07/21/16 02:06 Dose: Not Given Metoclopramide HCl (Reglan) 10 mg IVPUSH ONETIME ONE Stop: 07/21/16 00:21 Last Admin: 07/21/16 02:05 Dose: 10 mg Morphine Sulfate (Duramorph Pf) Confirm Administered Dose 10 mg .ROUTE .STK-MED ONE Stop: 07/21/16 00:34 Ondansetron HCl (Zofran) Confirm Administered Dose 4 mg .ROUTE .STK-MED ONE Stop: 07/21/16 00:34 Ondansetron HCl (Zofran) 4 mg IVPUSH ONETIME PRN PRN Reason: Nausea/Vomiting Oxytocin (Pitocin) Confirm Administered Dose 10 unit .ROUTE .STK-MED ONE Stop: 07/21/16 00:34 Sodium Chloride (Saline Flush) 10 ml FLUSH ASDIRECTED PRN PRN Reason: Keep Vein Open *Q Meaningful Use (DIS) - VTE *Q VTE Criteria *Q: - Stroke *Q Stroke Criteria *Q: - AMI *Q AMI Criteria *Q:
[2016-07-22 15:44] VITALS: BP 130/70
== END 2016-07-22 15:10 | disposition home or self-care (01) | DRG 766 ==
LOC: JD.OBCHECK 23:48 → JD.OB 23:49 → JD.OBCHECK 07-21 00:20 → JD.OB 07-21 00:20
PROVIDERS: ADMIT Obstetrics & Gynecology; ATTEND Obstetrics & Gynecology
PROC: 10D00Z1 Extraction of Products of Conception, Low, Open Approach (ICD-10-PCS; principal; 2016-07-21)
DX: O42.92 Full-term premature rupture of membranes, unspecified as to length of time between rupture and onset of labor (principal); O34.211 Maternal care for low transverse scar from previous cesarean delivery; N85.8 Other specified noninflammatory disorders of uterus; O77.0 Labor and delivery complicated by meconium in amniotic fluid; Z3A.39 39 weeks gestation of pregnancy; Z37.0 Single live birth; O99.214 Obesity complicating childbirth; E66.01 Morbid (severe) obesity due to excess calories; Z87.891 Personal history of nicotine dependence
CPT/HCPCS: 01961; 36415; 85025; 85027; 86592; 86762; 86850; 86900; 86901; 87340; 87449; A9270-GY; J0690; J1885; J2175; J2270; J2405; J2590; J2765; J7042; J7120

== ENCOUNTER 2016-08-06 22:03 | Emergency (ER) | payer OTHER ==
[2016-08-06 22:14] VITALS: BP 142/79
--- NOTE | 2016-08-06 23:18 | EDM.PDOC ---
ED HPI Trauma - General Chief Complaint: Lower Extremity Injury/Pain Stated Complaint: SWOLLEN LEGS AND FEET Time Seen by Provider: 08/06/16 22:11 Source: Reports: Patient, RN notes reviewed History Limitations: Reports: No limitations - History of Present Illness INITIAL COMMENTS - FREE TEXT/NARRATIVE: The patient states that she had a section 07/21/2016, and followup with her Vice President [employer]or Relations, Dr. Cosme this past 08/04/2016. At that time, the patient reported to Dr. Cosme that she has been experiencing bilateral leg and feet swelling, and that it hurts for her to walk. The patient was told that this is normal. The patient has subsequently spoken to a friend who is an ENT, who had another friend, and RN look at her, followed by the of the RN, a physician, who informed the patient that she needs to have her legs checked out so that she doesn't have a stroke or seizure. The patient denies having palpitations, chest pain, or dyspnea. 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: () Endocrine/Metabolic History: Reports: Obesity/BMI 30+ Hematologic History: Reports: Blood transfusion(s) - Past Surgical History GI Surgical History: Reports: Appendectomy, Cholecystectomy Female Surgical History: Reports: section (x 5) Musculoskeletal Surgical History: Reports: Shoulder surgery (left arthroscopic) - History Comment History Comment: multivitamin for home meds- 16 weeks Social & Family History - Family History Family Medical History: Noncontributory - Tobacco Use Smoking Status *Q: Light Tobacco Smoker Packs/Tins Daily: 0 Used Tobacco, but Quit: Yes Month Tobacco Last Used: 2 years ago Second Hand Smoke Exposure: No - Caffeine Use Caffeine Use: Reports: None - Alcohol Use Alcohol Use History: No Days Per Week of Alcohol Use: 0 - Recreational Drug Use Recreational Drug Use: No - Living Situation & Occupation Living situation: Reports: single, with significant other (Fiance), with family (7 children) 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) Review of Systems - Review of Systems Review Of Systems: See Below Constitutional: Reports: no symptoms Eyes: Reports: no symptoms Ears: Reports: no symptoms Nose: Reports: no symptoms Mouth/Throat: Reports: no symptoms Respiratory: Reports: No Symptoms Cardiovascular: Reports: no symptoms GI/Abdominal: Reports: No symptoms Genitourinary: Reports: no symptoms Musculoskeletal: Reports: no symptoms Skin: Reports: no symptoms Neurological: Reports: No Symptoms Psychiatric: Reports: no symptoms Trauma Exam - Physical Exam Exam: See Below Exam Limited By: No limitations General Appearance: Reports: alert, WD/WN, no apparent distress Head: Reports: atraumatic, normocephalic Eyes: bilateral eye: EOMI, normal inspection Ears: Reports: normal external exam, hearing grossly normal Nose: Reports: normal inspection, no blood Throat/Mouth: Reports: Normal inspection, Normal lips, Normal voice, No airway compromise Neck: Reports: normal alignment, normal inspection Respiratory Exam: Reports: no respiratory distress, lungs clear, normal breath sounds, no accessory muscle use Cardiovascular: Reports: normal peripheral pulses, regular rate, rhythm, no gallop, no JVD, no murmur, no rub GI/Abdominal: Reports: normal bowel sounds, soft, non tender, no organomegaly, no distention, no abnormal bruit, no mass, other (Obese) (Female) Exam: Deferred Rectal (Female) Exam: Deferred Back: Reports: full range of motion, normal inspection Extremities: Reports: no evidence of injury, normal range of motion, other (2+ pitting edema pretibially, extending to the feet, bilaterally. Neurovascular status of both lower extremities is intact.) Neurologic: Reports: no motor/sensory deficits, alert, oriented x 3 Skin: Reports: Normal color, Warm/dry Course - Vital Signs Last Recorded V/S: Last Vital Signs Temp 36.4 C 08/06/16 22:10 Pulse 53 L 08/06/16 22:10 Resp 20 08/06/16 22:10 BP 142/79 H 08/06/16 22:10 Pulse Ox 96 08/06/16 22:10 - Orders/Labs/Meds Orders: Active Orders 24 hr Category Date Time Status Venous Doppler Lwr Ext Bi [US] Stat Exams 08/06/16 22:29 Taken Labs: Laboratory Tests 08/06/16 08/06/16 08/06/16 Range/Units 22:43 22:43 22:43 WBC 12.29 H (3.98-10.04) K/mm3 RBC 3.86 L (3.98-5.22) M/mm3 Hgb 9.4 L (11.2-15.7) gm/L Hct 30.6 L (34.1-44.9) % MCV 79.3 L (79.4-94.8) fl MCH 24.4 L (25.6-32.2) pg MCHC 30.7 L (32.2-35.5) g/dl RDW Std Deviation 40.2 (36.4-46.3) fL Plt Count 348 (182-369) K/mm3 MPV 10.9 (9.4-12.3) fl Neutrophils % (Manual) 47 (40-60) % Band Neutrophils % 0 (0-10) % Lymphocytes % (Manual) 45 H (20-40) % Atypical Lymphs % 0 % Monocytes % (Manual) 3 (2-10) % Eosinophils % (Manual) 5 (0.7-5.8) % Basophils % (Manual) 0 L (0.1-1.2) Platelet Estimate Adequate Plt Morphology Comment Normal Polychromasia 1+ slight Anisocytosis 1+ slight Microcytosis Few RBC Morph Comment Not Reportable PT 10.2 (8.0-13.0) SECONDS INR 0.94 APTT 25 (22-36) SECONDS Sodium 140 (136-145) mEq/L Potassium 3.7 (3.5-5.1) mEq/L Chloride 107 (98-107) mEq/L Carbon Dioxide 26 (21-32) mEq/L Anion Gap 10.7 (5-15) BUN 15 (7-18) mg/dL Creatinine 0.8 (0.55-1.02) mg/dL Est Cr Clr Drug Dosing 84.76 mL/min Estimated GFR (MDRD) > 60 (>60) mL/min BUN/Creatinine Ratio 18.8 H (14-18) Glucose 111 H (74-106) mg/dL Calcium 8.6 (8.5-10.1) mg/dL Total Bilirubin 0.2 (0.2-1.0) mg/dL AST 16 (15-37) U/L ALT 18 (14-59) U/L Alkaline Phosphatase 152 H (46-116) U/L Total Protein 7.2 (6.4-8.2) g/dl Albumin 2.8 L (3.4-5.0) g/dl Globulin 4.4 gm/dL Albumin/Globulin Ratio 0.6 L (1-2) - Radiology Interpretation Free Text/Narrative:: Duplex ultrasound of the bilateral lower extremities is read by [facility] as "Normal bilateral lower extremity duplex venous ultrasound." - Re-Assessments/Exams Free Text/Narrative Re-Assessment/Exam: 08/07/16 00:15 Test results discussed with the patient. Today's workup is completely unremarkable. The patient's lower extremity edema appears to be residual from . I'm recommending that she elevate her lower extremities as much as possible when she is not ambulating, and to consider getting bilateral compression stockings. Departure - Departure Time of Disposition: 00:16 Disposition: Home, Self-Care 01 Condition: good Clinical Impression: Bilateral lower extremity edema Referrals: Telma Cosme MD [Primary Care Provider] - Forms: ED Department Discharge Additional Instructions: You were seen in the emergency room for swelling of both of your legs. Workup in the ER included blood work and Doppler ultrasounds of both of your lower extremities. Her entire workup was unremarkable. You do not have a blood clot in either of your legs. We recommend that you elevate both of your lower extremities as much as possible when you are not walking around. We also recommend that you purchase compression stockings. Apply them each morning, and remove them at bed time. If any other problems, please do not hesitate to return to the ER. - My Orders Last 24 Hours: My Active Orders 08/06/16 22:29 Venous Doppler Lwr Ext Bi [US] Stat - Assessment/Plan Last 24 Hours: My Active Orders 08/06/16 22:29 Venous Doppler Lwr Ext Bi [US] Stat
--- NOTE | 2016-08-07 11:52 | US ---
Bilateral lower extremity deep venous ultrasound: Duplex and color flow images were obtained of the right left common femoral, proximal greater saphenous, superficial femoral, popliteal, posterior tibial and peroneal veins. Technologist's note: Suboptimal compression images due to patient's body habitus. Normal phasic flow and augmentation is seen. Compression appears to be fairly normal. Edema noted within the subcutaneous tissues in the area of the mid calf to ankle. Impression: 1. No findings of deep venous thrombosis seen within either the right or left lower extremity. 2. Subcutaneous edema within both lower extremities. Diagnostic code #2 Agree with preliminary report issued by [employer] ([facility] report dictated on 08/07/16, 1:07 AM Central Time)
== END 2016-08-07 00:24 | disposition home or self-care (01) ==
LOC: JD.ED 22:03
DX: O99.89 Other specified diseases and conditions complicating pregnancy, childbirth and the puerperium (principal); R60.0 Localized edema; Z90.49 Acquired absence of other specified parts of digestive tract; Z98.890 Other specified postprocedural states; Z87.891 Personal history of nicotine dependence
CPT/HCPCS: 36415; 80053; 85025; 85610; 85730; 93970; 93970-26; 99283; 99284-25

== ENCOUNTER 2020-07-14 18:20 | Inpatient (IN) | payer OTHER ==
[2020-07-14] MEDS ORDERED: Metoclopramide 10 MG/2 ML SDV IVPUSH ONE (18:38)
[2020-07-14] MEDS ORDERED: Sodium Chloride 0.9% 10 ML Syringe FLUSH PRN (18:38)
[2020-07-14] MEDS ORDERED: Citric Acid/Sodium Citrate Solution 30 ML Cup PO ONE (18:38)
[2020-07-14] MEDS ORDERED: ceFAZolin 2 GM in Premix Bag 1 BAG IV ONE (18:38)
[2020-07-14] MEDS ORDERED: Lactated Ringers 1,000 ML IV SCH (18:45)
--- NOTE | 2020-07-14 19:32 | PCM.LDHP ---
<Jacqueline Pineda - Last Filed: 07/14/20 21:20> L&D History of Present Illness - General Date of Service: 07/14/20 Admit Problem/Dx: Patient Status Order with Admit Dx/Problem 07/14/20 18:38 Patient Status [ADT] Routine Admission Diagnosis/Problem Admission Diagnosis/Problem Source of Information: Patient History Limitations: Reports: No Limitations - History of Present Illness Introduction:: Patient is a 40 year old GBS unknown x 5 who present today at between 37-41 weeks gestational age for evaluation of labor. The patient has only received care at her last evaluation at the hospital, when she was estimated to be 34-4 weeks gestational age via third trimester US. She has used Fentanyl durign her with most recent use yesterday. She reports that she has had contractions beginning at 2 pm today and have been increasing in strength but not frequency. She endorses possible leaking of fluid but is unsure if it was urine. She denies vaginal bleeding. She reports that she has noticed decreased movement in the last day. She desires a repeat . Present Illness Comments:: Patient is a GBS unknown A+ 40 year old x 2, 1 set of twins, c- section x 5 female with an that of SIDS who is estimated to be at 41 weeks gestation age via third trimester US done during last labor evaluation here. JORGE LUIS reported by the patient was 08/07/20, which would make her 37 weeks gestational age. She initially presented today for signs of labor. Patient desires a repeat . Patient did not received care during her ; only known evaluation was at the hospital when previously evaluated for labor. She underwent routine labs (see below) and had a negative urine drug screen. Reports that she had used two weeks prior to that evaluation and has used fentanyl 1 pill x 3 times a day for the last three weeks. She states that she has custody of her children but discussion with field services manager implies otherwise. She states that she has not been at home for the last week because if she returns home they will take her children away. Her children are currently staying with her . The plan is for the to take the infant home and she has a bed reserved at a treatment facility in [place] following delivery. No other known complications during her preg myesha. She has not received Tdap or Flu vaccines OBGYN History G1: 19 year old delivered via G2: 17 year old G3: Twins delivered via for breech presentation G4: would be 11 year old male delivered by , due to SIDs G5: 9 year old delivered via G6: 8 year old delivered via G7: 4 year old delivered via G8: current labs: Blood type: A+ Antibody screen: negative Rubella status: immune Hepatitis B surface antigen: negative RPR: unknown HIV: negative Gonorrhea: Negative Chlamydia: negative Anatomy US: US done 05/30/20 demonstrated placenta far from cervix One hour glucose tolerance test: unknown Hemoglobin: 10.6 Platelets: 267,000 GBS status: unknown, not collected Urine drug screen: Negative - Related Data Allergies/Adverse Reactions: Allergies Allergy/AdvReac Type Severity Reaction Status Date / Time No Known Allergies Allergy Verified 05/30/20 17:35 Home Medications: Home Meds . [No Known Home Meds] 05/30/20 [History] Past Medical History - Past Health History Medical/Surgical History: Denies Medical/Surgical History HEENT History: Reports: Impaired Vision Other HEENT History: wears glasses Cardiovascular History: Reports: None Respiratory History: Reports: None Gastrointestinal History: Reports: Chronic Constipation, Other (See Below) Other Gastrointestinal History: with OPERATOR SPECIALIST COMMUNICATIONS History: Reports: () Other OB/BYN History: cysts on ovaries;blood clot to ovary, 8, para 6 Musculoskeletal History: Reports: None Endocrine/Metabolic History: Reports: Obesity/BMI 30+ Hematologic History: Reports: Blood Transfusion(s) Oncologic (Cancer) History: Reports: None - Past Surgical History GI Surgical History: Reports: Appendectomy, Cholecystectomy Female Surgical History: Reports: Section (x5) - History Comment History Comment: multivitamin for home meds- 16 weeks Social & Family History - Family History Family Medical History: No Pertinent Family History - Caffeine Use Caffeine Use: Reports: None - Living Situation & Occupation Living situation: Reports: Single, with Significant Other, with Family Occupation: Employed H&P Review of Systems - Review of Systems: Review Of Systems: See Below General: Reports: No Symptoms HEENT: Reports: No Symptoms Pulmonary: Reports: No Symptoms Cardiovascular: Reports: No Symptoms Gastrointestinal: Reports: No Symptoms Genitourinary: Reports: No Symptoms Musculoskeletal: Reports: No Symptoms Skin: Reports: No Symptoms Psychiatric: Reports: No Symptoms Neurological: Reports: No Symptoms L&D Exam - Exam Exam: See Below - Vital Signs Weight: 106.141 kg - OB Specific Contraction Intensity: Mild Movement: Active Heart Tones: Present - Byrne Score Byrne Score Cervix Position: Posterior Byrne Score Dilation: 1-2 cm - Exam Quality Assessment: Supplemental Oxygen General: Alert, Oriented Lungs: Clear to Auscultation, Normal Respiratory Effort Cardiovascular: Regular Rate, Regular Rhythm Extremities: Normal Inspection Skin: Warm, Dry, Intact - Patient Data Lab Results Last 24 hrs: Laboratory Results - last 24 hr 07/14/20 Range/Units 18:50 WBC 15.01 H (3.98-10.04) K/mm3 RBC 4.09 (3.98-5.22) M/mm3 Hgb 10.6 L (11.2-15.7) gm/dl Hct 33.0 L (34.1-44.9) % MCV 80.7 (79.4-94.8) fl MCH 25.9 (25.6-32.2) pg MCHC 32.1 L (32.2-35.5) g/dl RDW Std Deviation 38.9 (36.4-46.3) fL Plt Count 267 (182-369) K/mm3 MPV 11.9 (9.4-12.3) fl Result Diagrams: 07/14/20 18:50 07/14/20 18:50 - Problem List (1) Currently in third trimester with unknown gestational age SNOMED Code(s): 898169680, 960877557 ICD Code: Z34.93 - ENCNTR FOR SUPRVSN OF NORMAL PREG, UNSP, THIRD TRIMESTER Status: Acute Current Visit: Yes (2) Drug use affecting SNOMED Code(s): 41818271, 220128130 ICD Code: O99.320 - DRUG USE COMPLICATING , UNSPECIFIED TRIMESTER Status: Acute Current Visit: Yes (3) History of delivery, currently SNOMED Code(s): 780129119, 103712397 ICD Code: O34.219 - MATERNAL CARE FOR UNSP TYPE SCAR FROM PREVIOUS DEL Status: Acute Current Visit: Yes (4) Limited care SNOMED Code(s): 764312216 ICD Code: O09.30 - SUPRVSN OF PREG W INSUFFICIENT ANTENAT CARE, UNSP TRIMESTER Status: Acute Current Visit: Yes Problem List Initiated/Reviewed/Updated: Yes Orders Last 24hrs: Active Orders 24 hr Category Date Time Status Patient Status [ADT] Routine ADT 07/14/20 18:38 Active Communication Order [RC] ROUTINE Care 07/14/20 18:38 Active Heart Tones [RC] PER UNIT ROUTINE Care 07/14/20 18:38 Active Non Stress Test [RC] PER UNIT ROUTINE Care 07/14/20 18:38 Active Peripheral IV Care [RC] . DIRECTED Care 07/14/20 18:39 Active Procedure Site Prep Instruct [RC] ASDIRECTED Care 07/14/20 18:38 Active Verify Patient Consent Obtain [RC] PER UNIT ROUTINE Care 07/14/20 18:38 Active Vital Signs [RC] PFP Care 07/14/20 18:38 Active Nothing Per Oral Diet [DIET] Diet 07/14/20 Dinner Active COMPREHENSIVE METABOLIC PN,CMP [CHEM] Stat Lab 07/14/20 18:50 Received CORONAVIRUS COVID-19 PEGGY [MOLEC] Stat Lab 07/14/20 18:35 Received DRUG SCREEN, URINE [URCHEM] Stat Lab 07/14/20 18:42 Ordered RAPID PLASMA REAGIN,RPR [CHEM] Stat Lab 07/14/20 18:50 Received TYPE AND SCREEN [BBK] Routine Lab 07/14/20 18:50 Received Lactated Ringers [Ringers, Lactated] 1,000 ml Med 07/14/20 18:45 Active IV ASDIRECTED Sodium Chloride 0.9% [Saline Flush] Med 07/14/20 18:38 Active 10 ml FLUSH ASDIRECTED PRN Peripheral IV Insertion Adult [OM.PC] Routine Oth 07/14/20 18:38 Ordered Schedule Procedure [COMM] Per Unit Routine Oth 07/14/20 18:38 Ordered Resuscitation Status Routine Resus Stat 07/14/20 18:38 Ordered Medication Orders Lactated Ringer's (Ringers, Lactated) 1,000 mls @ 125 mls/hr IV ASDIRECTED LENA Sodium Chloride (Sodium Chloride 0.9% 10 Ml Syringe) 10 ml FLUSH ASDIRECTED PRN PRN Reason: Keep Vein Open Assessment/Plan Comment:: 40 year old x 5, twins, due to SIDS at estimated 41 weeks gestational age based on third trimester US who presented for evaluation of labor. 1. Previous - desires repeat . Transfer to [place] for pediatric concerns was discussed at length, including risks of withdrawal of the infant and chance of transfer of the infant while the mother remained in [place]. The patient discussed this with her sister and refused transfer. 2. Drug use during - drug screen done 05/30/20 negative, most recent drug use yesterday, reports 1 pill of Fentanyl three times a day for the last three weeks 2. Plan for - OR staff notified, patient NPO 3. GBS unknown 4. A+ negative antibody screen 5. Rubella immune 6. RPR negative 7. care services manager - infant's father to take child after delivery, mother to be admitted to treatment facility in [place] <Telma Cosme - Last Filed: 07/15/20 04:19> L&D History of Present Illness - General Admit Problem/Dx: Admission Diagnosis/Problem Admission Diagnosis/Problem L&D Exam - Vital Signs Vital Signs: Last Vital Signs Temp 36.9 C 07/15/20 01:10 Pulse 83 07/15/20 01:10 Resp 20 07/15/20 01:10 BP 105/55 L 07/15/20 01:10 Pulse Ox 96 07/15/20 01:10 - Patient Data Result Diagrams: 07/14/20 18:50 07/14/20 18:50 - Problem List (1) Currently in third trimester with unknown gestational age SNOMED Code(s): 335804386, 346710010 ICD Code: Z34.93 - ENCNTR FOR SUPRVSN OF NORMAL PREG, UNSP, THIRD TRIMESTER Status: Acute Current Visit: Yes (2) Drug use affecting SNOMED Code(s): 47824245, 259564782 ICD Code: O99.320 - DRUG USE COMPLICATING , UNSPECIFIED TRIMESTER Status: Acute Current Visit: Yes Qualifiers: Trimester: third trimester Qualified Code(s): O99.323 - Drug use complicating , third trimester (3) History of delivery, currently SNOMED Code(s): 472313060, 885283132 ICD Code: O34.219 - MATERNAL CARE FOR UNSP TYPE SCAR FROM PREVIOUS DEL Status: Acute Current Visit: Yes (4) Limited care SNOMED Code(s): 238122487 ICD Code: O09.30 - SUPRVSN OF PREG W INSUFFICIENT ANTENAT CARE, UNSP TRIMESTER Status: Acute Current Visit: Yes Qualifiers: Trimester: third trimester Qualified Code(s): O09.33 - Supervision of with insufficient care, third trimester Problem List Initiated/Reviewed/Updated: Yes Orders Last 24hrs: Active Orders 24 hr Category Date Time Status Activity as Tolerated [RC] .Routine Care 07/14/20 22:43 Active Antiembolic Devices [RC] PER UNIT ROUTINE Care 07/14/20 22:43 Active Communication Order [RC] ASDIRECTED Care 07/14/20 20:30 Active Communication Order [RC] PER UNIT ROUTINE Care 07/14/20 22:43 Active Intake and Output [RC] Q4H Care 07/14/20 22:43 Active May Shower [RC] PER UNIT ROUTINE Care 07/14/20 22:43 Active Notify Provider Intake and Out [RC] ASDIRECTED Care 07/14/20 22:43 Active Notify Provider [RC] ASDIRECTED Care 07/14/20 20:30 Active Oxygen Therapy [RC] ASDIRECTED Care 07/14/20 20:30 Active Pulse Oximetry [RC] ASDIRECTED Care 07/14/20 20:30 Active RT Incentive Spirometry [RC] Q2HWA Care 07/14/20 22:43 Active Urinary Catheter Removal [RC] Per Unit Routine Care 07/15/20 21:24 Active Vital Signs [RC] PER UNIT ROUTINE Care 07/14/20 22:43 Active Vital Signs [RC] Q1H Care 07/14/20 20:30 Active Regular Diet [DIET] Diet 07/14/20 Breakfast Active CBC W/O DIFF,HEMOGRAM [HEME] Timed Lab 07/15/20 12:00 Ordered RAPID PLASMA REAGIN,RPR [CHEM] Stat Lab 07/14/20 18:50 Received Acetaminophen/oxyCODONE [Percocet 325-5 MG] Med 07/14/20 22:43 Active 1 tab PO Q4H PRN Acetaminophen/oxyCODONE [Percocet 325-5 MG] Med 07/14/20 22:43 Active 2 tab PO Q4H PRN Dextrose 5%-Lactated Ringers 1,000 ml Med 07/14/20 22:43 Active IV ASDIRECTED Docusate Sodium [Colace] Med 07/14/20 22:43 Active 100 mg PO Q12H PRN HYDROmorphone [Dilaudid] Med 07/14/20 20:31 Active 0.5 mg IVPUSH Q10M PRN Ibuprofen [Motrin] Med 07/15/20 21:00 Active 600 mg PO Q6H PRN Ketorolac [Toradol] Med 07/15/20 03:30 Active 30 mg IVPUSH Q6H Naloxone [Narcan] Med 07/14/20 22:43 Active 0.1 mg IVPUSH SEECOMMENT PRN Ondansetron [Zofran] Med 07/14/20 20:31 Active 4 mg IVPUSH ONETIME PRN diphenhydrAMINE [Benadryl] Med 07/14/20 20:31 Active 25 mg IVPUSH Q6H PRN diphenhydrAMINE [Benadryl] Med 07/14/20 22:43 Active 25 mg IVPUSH Q6H PRN ePHEDrine [ePHEDrine sulfate] Med 07/14/20 20:31 Active 5 mg IVPUSH ASDIRECTED PRN fentaNYL [Sublimaze] Med 07/14/20 20:31 Active 50 mcg IVPUSH Q20M PRN Assess Lochia [WOMSER] Per Unit Routine Oth 07/14/20 22:43 Ordered Assess Uterine Involution [WOMSER] Per Unit Routine Oth 07/14/20 22:43 Ordered Breast Pump [WOMSER] Per Unit Routine Oth 07/14/20 22:43 Ordered Peripheral IV Discontinue [OM.PC] Routine Oth 07/14/20 22:43 Ordered Pulse Oximetry Continuous Monitoring [OM.PC] Routine Oth 07/14/20 20:31 Active Sequential Compression Device [OM.PC] Per Unit Routine Oth 07/14/20 22:43 Ordered Resuscitation Status Routine Resus Stat 07/14/20 18:38 Ordered Medication Orders Diphenhydramine HCl (Diphenhydramine 50 Mg/Ml Sdv) 25 mg IVPUSH Q6H PRN PRN Reason: pruritis Diphenhydramine HCl (Diphenhydramine 50 Mg/Ml Sdv) 25 mg IVPUSH Q6H PRN PRN Reason: Itching or Nausea Docusate Sodium (Docusate Sodium 100 Mg Cap) 100 mg PO Q12H PRN PRN Reason: Constipation Ephedrine Sulfate (Ephedrine 50 Mg/Ml Sdv) 5 mg IVPUSH ASDIRECTED PRN PRN Reason: Hypotension Fentanyl (Fentanyl 100 Mcg/2 Ml Sdv) 50 mcg IVPUSH Q20M PRN PRN Reason: Pain Hydromorphone HCl (Hydromorphone 0.5 Mg/0.5 Ml Syringe) 0.5 mg IVPUSH Q10M PRN PRN Reason: Pain (severe 7-10) Dextrose/Lactated Ringer's (Dextrose 5%-Lactated Ringers) 1,000 mls @ 125 mls/hr IV ASDIRECTED [facility] Stop: 07/15/20 06:42 Last Admin: 07/15/20 01:11 Dose: 125 mls/hr Documented by: NORMA Ibuprofen (Ibuprofen 600 Mg Tab) 600 mg PO Q6H PRN PRN Reason: mild pain or fever Ketorolac Tromethamine (Ketorolac 30 Mg/Ml Sdv) 30 mg IVPUSH Q6H [facility] Stop: 07/15/20 15:31 Naloxone HCl (Naloxone 0.4 Mg/Ml Sdv) 0.1 mg IVPUSH SEECOMMENT PRN PRN Reason: Respiratory Depression Ondansetron HCl (Ondansetron 4 Mg/2 Ml Sdv) 4 mg IVPUSH ONETIME PRN PRN Reason: Nausea/Vomiting Oxycodone/Acetaminophen (Acetaminophen/Oxycodone 325-5 Mg Tab) 1 tab PO Q4H PRN PRN Reason: Pain (moderate 4-6) Oxycodone/Acetaminophen (Acetaminophen/Oxycodone 325-5 Mg Tab) 2 tab PO Q4H PRN PRN Reason: Pain (severe 7-10) Assessment/Plan Comment:: I was present during patient interview and also conducted exam. I agree with the above documentation as stated. At last assessment in May patient also Hep C negative. Denies any injection drug use. Reports fentanyl used orally. Reviewed risks/benefits of planned repeat in [place]. Patient braulio res to proceed. Telma Cosme MD
--- NOTE | 2020-07-14 19:33 | PCM.OPNOTE ---
- General Post-Op/Procedure Note Date of Surgery/Procedure: 07/14/20 Operative Procedure(s): Repeat low transverse Findings: Minimal amount of scar tissue between the rectus and fascia. Minimal adhesive disease between bladder and CLARA. Baby Boy in vertex presentation. Weight of 8 lbs 4 oz. APGARS of 7 & 8 Pre Op Diagnosis: Scant care. Between 37-41 weeks gestation. History of 5 prior c-sections. Maternal drug use in Post-Op Diagnosis: Same Anesthesia Technique: Spinal Primary Surgeon: Telma Cosme Secondary Surgeon: Allison Potter Anesthesia Provider: Claribel Tejada Reason Superintendent [employer]munition Storage Was Necessary: Speed and safety of procedure, BMI of 40 Pathology: Cord blood collected. Placenta discarded Fluid Replacement, Intraop: 1,100 Output, Urine Amount: 100 EBL in mLs: 300 Complications: None Condition: Good Free Text/Narrative:: The risks, benefits, indications, potential complications, and alternatives were explained to the patient and informed consent obtained. After induction of anesthesia, the patient was placed in a supine position and then draped and prepped in the usual sterile manner. A Pfannenstiel incision was made and carried down through the subcutaneous tissue to the fascia. Fascial incision was made and extended transversely. The fascia was from the underlying rectus tissue superiorly and inferiorly. The peritoneum was identified and entered. Peritoneal incision was extended longitudinally. No bladder flap made. A low transverse uterine incision was made sharply with a scalpel and extended bluntly in a cephalocaudad direction. A baby boy was delivered from a vertex presentation with APGARS as above. After the umbilical cord was clamped and cut cord blood was obtained for evaluation. The placenta was removed intact and appeared normal. The uterus was exteriorized and cleared of clots. The uterine outline, tubes and ovaries appeared normal. The uterine incision was closed with running locked sutures of 0 Vicryl. Hemostasis was noted. The uterus was then placed back into the abdomen. The infracolic gutters were cleared of blood clots. The fascia was then reapproximated with running sutures of 0 PDS. The subcutaneous tissue was irrigated with sterile warm normal saline, hemostasis obtained with cautery. This layer was also closed with a running 0 Vicryl. The skin was reapproximated with running Subcuticular 4-0 Monocryl sutures and sealed with Dermabond. Instrument, sponge, and needle counts were correct prior the abdominal closure and at the conclusion of the case.
--- NOTE | 2020-07-14 19:57 | PCM.PREANE ---
Preanesthetic Assessment - Procedure Proposed Procedure: Repeat Csection - Anesthesia/Transfusion/Family Hx Anesthesia History: Prior Anesthesia Without Reaction Type of Anesthesia Reaction: Excessive Somnolence Family History of Anesthesia Reaction: No Transfusion History: Unknown Intubation History: Unknown - Review of Systems General: No Symptoms Pulmonary: No Symptoms Cardiovascular: No Symptoms Gastrointestinal: No Symptoms Neurological: No Symptoms (Chronic back pain with daily doses of fentanyl noted. [facility]) Other: Reports: None - Physical Assessment NPO Status Date: 07/14/20 NPO Status Time: 16:45 Vital Signs: Last Vital Signs Temp 37.3 C 07/14/20 18:38 Pulse 104 H 07/14/20 18:38 Resp 18 07/14/20 18:38 BP 133/86 07/14/20 18:38 Pulse Ox Height: 1.63 m Weight: 106.141 kg ASA Class: 3 Mental Status: Alert & Oriented x3 Airway Class: Mallampati = 1 Dentition: Reports: Normal Dentition, Caries Thyro-Mental Finger Breadths: 3 Mouth Opening Finger Breadths: 3 ROM/Head Extension: Full Lungs: Clear to Auscultation, Normal Respiratory Effort Cardiovascular: Regular Rate, Regular Rhythm, No Murmurs - Lab Values: Laboratory Last Values WBC 15.01 K/mm3 (3.98-10.04) H 07/14/20 18:50 RBC 4.09 M/mm3 (3.98-5.22) 07/14/20 18:50 Hgb 10.6 gm/dl (11.2-15.7) L 07/14/20 18:50 Hct 33.0 % (34.1-44.9) L 07/14/20 18:50 MCV 80.7 fl (79.4-94.8) 07/14/20 18:50 MCH 25.9 pg (25.6-32.2) 07/14/20 18:50 MCHC 32.1 g/dl (32.2-35.5) L 07/14/20 18:50 RDW Std Deviation 38.9 fL (36.4-46.3) 07/14/20 18:50 Plt Count 267 K/mm3 (182-369) 07/14/20 18:50 MPV 11.9 fl (9.4-12.3) 07/14/20 18:50 Sodium 138 mEq/L (136-145) 07/14/20 18:50 Potassium 3.6 mEq/L (3.5-5.1) 07/14/20 18:50 Chloride 104 mEq/L (98-107) 07/14/20 18:50 Carbon Dioxide 23 mEq/L (21-32) 07/14/20 18:50 Anion Gap 14.6 (5-15) 07/14/20 18:50 BUN 10 mg/dL (7-18) 07/14/20 18:50 Creatinine 0.6 mg/dL (0.55-1.02) 07/14/20 18:50 Est Cr Clr Drug Dosing 108.70 mL/min 07/14/20 18:50 Estimated GFR (MDRD) > 60 mL/min (>60) 07/14/20 18:50 BUN/Creatinine Ratio 16.7 (14-18) 07/14/20 18:50 Glucose 129 mg/dL (74-106) H 07/14/20 18:50 Calcium 8.8 mg/dL (8.5-10.1) 07/14/20 18:50 Total Bilirubin 0.3 mg/dL (0.2-1.0) 07/14/20 18:50 AST 12 U/L (15-37) L 07/14/20 18:50 ALT 14 U/L (14-59) 07/14/20 18:50 Alkaline Phosphatase 256 U/L (46-116) H 07/14/20 18:50 Total Protein 7.0 g/dl (6.4-8.2) 07/14/20 18:50 Albumin 2.3 g/dl (3.4-5.0) L 07/14/20 18:50 Globulin 4.7 gm/dL 07/14/20 18:50 Albumin/Globulin Ratio 0.5 (1-2) L 07/14/20 18:50 SARS-CoV-2 RNA (PEGGY) Negative (NEGATIVE) 07/14/20 18:35 Blood Type A POSITIVE 07/14/20 18:50 - Allergies Allergies/Adverse Reactions: Allergies Allergy/AdvReac Type Severity Reaction Status Date / Time No Known Allergies Allergy Verified 05/30/20 17:35 - Anesthesia Plan Pre-Op Medication Ordered: None, Other (oral bicitra, and IV reglan) - Acknowledgements Anesthesia Type Planned: Spinal Pt an Appropriate Candidate for the Planned Anesthesia: Yes Alternatives and Risks of Anesthesia Discussed w Pt/Guardian: Yes Pt/Guardian Understands and Agrees with Anesthesia Plan: Yes PreAnesthesia Questionnaire - Past Health History Medical/Surgical History: Denies Medical/Surgical History HEENT History: Reports: Impaired Vision Other HEENT History: wears glasses Cardiovascular History: Reports: None Respiratory History: Reports: None Gastrointestinal History: Reports: Chronic Constipation, Other (See Below) Other Gastrointestinal History: with SENIOR ARCHITECT History: Reports: Other OB/BYN History: 9, 5 prior C/S Musculoskeletal History: Reports: None Other Psychiatric History: has had a hard time emotionally since mother , has beed using drugs to cope Endocrine/Metabolic History: Reports: Obesity/BMI 30+ Hematologic History: Reports: Blood Transfusion(s) Oncologic (Cancer) History: Reports: None - Past Surgical History GI Surgical History: Reports: Appendectomy, Cholecystectomy Female Surgical History: Reports: Section (x5) - History Comment History Comment: multivitamin for home meds- 16 weeks - SUBSTANCE USE Tobacco Use Status *Q: Former Tobacco User Tobacco Use Within Last Twelve Months: Cigarettes Recreational Drug Use History: Yes Recreational Drug Type: Reports: Fentanyl - HOME MEDS Home Medications: Home Meds . [No Known Home Meds] 05/30/20 [History] - CURRENT (IN HOUSE) MEDS Current Meds: Current Medications Lactated Ringer's (Ringers, Lactated) 1,000 mls @ 125 mls/hr IV ASDIRECTED [facility] Last Admin: 07/14/20 19:31 Dose: 999 mls/hr Documented by: Sodium Chloride (Sodium Chloride 0.9% 10 Ml Syringe) 10 ml FLUSH ASDIRECTED PRN PRN Reason: Keep Vein Open Discontinued Medications Citric Acid/Sodium Citrate (Citric Acid/Sodium Citrate Solution 30 Ml Cup) 30 ml PO ONETIME ONE Stop: 07/14/20 18:39 Last Admin: 07/14/20 19:31 Dose: 30 ml Documented by: Cefazolin Sodium/Dextrose 2 gm (/ Premix) 50 mls @ 100 mls/hr IV ONETIME ONE Stop: 07/14/20 19:07 Metoclopramide HCl (Metoclopramide 10 Mg/2 Ml Sdv) 10 mg IVPUSH ONETIME ONE Stop: 07/14/20 18:39 Last Admin: 07/14/20 19:31 Dose: 10 mg Documented by:
[2020-07-14] MEDS ORDERED: Carboprost Tromethamine 250 MCG/1 ML Amp ONE (20:05)
[2020-07-14] MEDS ORDERED: Methylergonovine 0.2 MG/1 ML Amp ONE (20:05)
[2020-07-14] MEDS ORDERED: Ondansetron 4 MG/2 ML SDV ONE (20:14)
[2020-07-14] MEDS ORDERED: Oxytocin 10 Units/1 ML SDV ONE (20:14)
[2020-07-14] MEDS ORDERED: ePHEDrine 50 MG/ML SDV ONE (20:14)
[2020-07-14] MEDS ORDERED: ceFAZolin 1 GM Vial ONE (20:14)
[2020-07-14] MEDS ORDERED: Morphine PF 10 MG/10 ML SDV ONE (20:14)
[2020-07-14] MEDS ORDERED: Ketorolac 30 MG/ML SDV ONE (20:14)
[2020-07-14] MEDS ORDERED: Lactated Ringers 2,000 ML ONE (20:14)
[2020-07-14] MEDS ORDERED: ePHEDrine 50 MG/ML SDV IVPUSH PRN (20:31)
[2020-07-14] MEDS ORDERED: fentaNYL 100 MCG/2 ML SDV IVPUSH PRN (20:31)
[2020-07-14] MEDS ORDERED: Ondansetron 4 MG/2 ML SDV IVPUSH PRN (20:31)
[2020-07-14] MEDS ORDERED: HYDROmorphone 0.5 MG/0.5 ML Syringe IVPUSH PRN (20:31)
[2020-07-14] MEDS ORDERED: diphenhydrAMINE 50 MG/ML SDV IVPUSH PRN ×2 (20:31→22:43)
[2020-07-14] MEDS ORDERED: fentaNYL 100 MCG/2 ML SDV ONE (20:49)
--- NOTE | 2020-07-14 21:18 | PCM.POSTAN ---
POST ANESTHESIA ASSESSMENT - MENTAL STATUS Mental Status: Alert - VITAL SIGNS Vital Signs: Last Vital Signs Temp 97.8 07/14/202110 Pulse 87 07/14/202110 Resp 13 07/14/202110 BP 110/78 07/14/202110 Pulse Ox 96% 07/14/202110 - RESPIRATORY Respiratory Status: Respiratory Rate WNL, Airway Patent, O2 Saturation Stable - CARDIOVASCULAR CV Status: Pulse Rate WNL, Blood Pressure Stable - GASTROINTESTINAL GI Status: No Symptoms - POST OP HYDRATION Hydration Status: Adequate & Stable
[2020-07-14] MEDS ORDERED: Acetaminophen/oxyCODONE 325-5 MG Tab PO PRN (22:43)
[2020-07-14] MEDS ORDERED: Dextrose 5%-Lactated Ringers 1,000 ML IV SCH (22:43)
[2020-07-14] MEDS ORDERED: Docusate Sodium 100 MG Cap PO PRN (22:43)
[2020-07-14] MEDS ORDERED: Ibuprofen 600 MG Tab PO PRN (22:43)
[2020-07-14] MEDS ORDERED: Naloxone 0.4 MG/ML SDV IVPUSH PRN (22:43)
[2020-07-15] MEDS ORDERED: Lactated Ringers 500 ML IV ONE ×3 (00:13→15:28)
[2020-07-15] MEDS: Ketorolac 30 MG/ML SDV IVPUSH SCH ×3 (05:11→14:39)
[2020-07-15] MEDS: Acetaminophen/oxyCODONE 325-5 MG Tab PO PRN ×3 (05:24→20:20)
--- NOTE | 2020-07-15 08:16 | PCM48HPAN ---
Post Anesthesia Note - EVALUATION WITHIN 48HRS OF ANESTHETIC Vital Signs in Normal Range: Yes Patient Participated in Evaluation: Yes Respiratory Function Stable: Yes Airway Patent: Yes Cardiovascular Function Stable: Yes Hydration Status Stable: Yes Pain Control Satisfactory: Yes Nausea and Vomiting Control Satisfactory: Yes Mental Status Recovered: Yes Vital Signs: Last Vital Signs Temp 36.7 C 07/15/20 07:45 Pulse 65 07/15/20 07:45 Resp 16 07/15/20 07:45 BP 114/55 L 07/15/20 07:45 Pulse Ox 97 07/15/20 07:45
[2020-07-15] MEDS: Morphine 4 MG/ML Syringe IVPUSH PRN ×5 (08:51→22:32)
--- NOTE | 2020-07-15 08:55 | PCM.PNPP ---
- General Info Date of Service: 07/15/20 Functional Status: Reports: Tolerating Diet, Ambulating. Denies: Pain Controlled - Review of Systems General: Reports: No Symptoms Cardiovascular: Reports: No Symptoms Gastrointestinal: Reports: Abdominal Pain Genitourinary: Reports: No Symptoms Musculoskeletal: Reports: No Symptoms Neurological: Reports: No Symptoms Systems Review Comment:: Patient tearful this AM. Saddened her baby is being treated for withdrawal. - Patient Data Vital Signs - Most Recent: Last Vital Signs Temp 36.7 C 07/15/20 07:45 Pulse 81 07/15/20 08:28 Resp 16 07/15/20 08:28 BP 114/55 L 07/15/20 07:45 Pulse Ox 92 L 07/15/20 08:28 Weight - Most Recent: 106.141 kg I&O - Last 24 Hours: Intake & Output 07/14/20 07/15/20 07/15/20 21:59 06:59 14:59 Intake Total Output Total 50 Balance -50 Lab Results - Last 24 Hours: Laboratory Results - last 24 hr 07/14/20 07/14/20 07/14/20 Range/Units 18:35 18:42 18:50 WBC (3.98-10.04) K/mm3 RBC (3.98-5.22) M/mm3 Hgb (11.2-15.7) gm/dl Hct (34.1-44.9) % MCV (79.4-94.8) fl MCH (25.6-32.2) pg MCHC (32.2-35.5) g/dl RDW Std Deviation (36.4-46.3) fL Plt Count (182-369) K/mm3 MPV (9.4-12.3) fl Sodium (136-145) mEq/L Potassium (3.5-5.1) mEq/L Chloride (98-107) mEq/L Carbon Dioxide (21-32) mEq/L Anion Gap (5-15) BUN (7-18) mg/dL Creatinine (0.55-1.02) mg/dL Est Cr Clr Drug Dosing mL/min Estimated GFR (MDRD) (>60) mL/min BUN/Creatinine Ratio (14-18) Glucose (74-106) mg/dL Calcium (8.5-10.1) mg/dL Total Bilirubin (0.2-1.0) mg/dL AST (15-37) U/L ALT (14-59) U/L Alkaline Phosphatase (46-116) U/L Total Protein (6.4-8.2) g/dl Albumin (3.4-5.0) g/dl Globulin gm/dL Albumin/Globulin Ratio (1-2) Urine Opiates Screen Negative (TLFHST=045) Ur Buprenorphine Scrn Negative (CUTOFF=10) Ur Oxycodone Screen Negative (JPN1HK=086) Urine Methadone Screen Negative (RNWIYL=800) Ur Propoxyphene Screen Negative (BOERDA=353) Ur Barbiturates Screen Negative (MTCLJR=502) Ur Tricyclics Screen Negative (PNWBTM=934) Ur Phencyclidine Scrn Negative (CUTOFF=25) Ur Amphetamine Screen Negative (RVNSCQ=958) U Methamphetamines Scrn Negative (WYAWUY=931) U Benzodiazepines Scrn Negative (XNUTOD=327) U Cocaine Metab Screen Negative (SFECUZ=186) U Marijuana (THC) Screen Negative (CUTOFF=50) SARS-CoV-2 RNA (PEGGY) Negative (NEGATIVE) Blood Type A POSITIVE Gel Antibody Screen Negative 07/14/20 07/14/20 Range/Units 18:50 18:50 WBC 15.01 H (3.98-10.04) K/mm3 RBC 4.09 (3.98-5.22) M/mm3 Hgb 10.6 L (11.2-15.7) gm/dl Hct 33.0 L (34.1-44.9) % MCV 80.7 (79.4-94.8) fl MCH 25.9 (25.6-32.2) pg MCHC 32.1 L (32.2-35.5) g/dl RDW Std Deviation 38.9 (36.4-46.3) fL Plt Count 267 (182-369) K/mm3 MPV 11.9 (9.4-12.3) fl Sodium 138 (136-145) mEq/L Potassium 3.6 (3.5-5.1) mEq/L Chloride 104 (98-107) mEq/L Carbon Dioxide 23 (21-32) mEq/L Anion Gap 14.6 (5-15) BUN 10 (7-18) mg/dL Creatinine 0.6 (0.55-1.02) mg/dL Est Cr Clr Drug Dosing 108.70 mL/min Estimated GFR (MDRD) > 60 (>60) mL/min BUN/Creatinine Ratio 16.7 (14-18) Glucose 129 H (74-106) mg/dL Calcium 8.8 (8.5-10.1) mg/dL Total Bilirubin 0.3 (0.2-1.0) mg/dL AST 12 L (15-37) U/L ALT 14 (14-59) U/L Alkaline Phosphatase 256 H (46-116) U/L Total Protein 7.0 (6.4-8.2) g/dl Albumin 2.3 L (3.4-5.0) g/dl Globulin 4.7 gm/dL Albumin/Globulin Ratio 0.5 L (1-2) Urine Opiates Screen (BXAXRL=448) Ur Buprenorphine Scrn (CUTOFF=10) Ur Oxycodone Screen (LXN1BX=003) Urine Methadone Screen (UQTBUV=400) Ur Propoxyphene Screen (JLKKSQ=210) Ur Barbiturates Screen (LSGFUP=656) Ur Tricyclics Screen (HYFEUQ=375) Ur Phencyclidine Scrn (CUTOFF=25) Ur Amphetamine Screen (DJDQSX=272) U Methamphetamines Scrn (ZPSCIN=674) U Benzodiazepines Scrn (IUVEJI=708) U Cocaine Metab Screen (DGEXPG=898) U Marijuana (THC) Screen (CUTOFF=50) SARS-CoV-2 RNA (PEGGY) (NEGATIVE) Blood Type Gel Antibody Screen Med Orders - Current: Current Medications Diphenhydramine HCl (Diphenhydramine 50 Mg/Ml Sdv) 25 mg IVPUSH Q6H PRN PRN Reason: pruritis Diphenhydramine HCl (Diphenhydramine 50 Mg/Ml Sdv) 25 mg IVPUSH Q6H PRN PRN Reason: Itching or Nausea Docusate Sodium (Docusate Sodium 100 Mg Cap) 100 mg PO Q12H PRN PRN Reason: Constipation Ephedrine Sulfate (Ephedrine 50 Mg/Ml Sdv) 5 mg IVPUSH ASDIRECTED PRN PRN Reason: Hypotension Fentanyl (Fentanyl 100 Mcg/2 Ml Sdv) 50 mcg IVPUSH Q20M PRN PRN Reason: Pain Hydromorphone HCl (Hydromorphone 0.5 Mg/0.5 Ml Syringe) 0.5 mg IVPUSH Q10M PRN PRN Reason: Pain (severe 7-10) Lactated Ringer's (Ringers, Lactated) 500 mls @ 500 mls/hr IV .BOLUS ONE Stop: 07/15/20 09:42 Ibuprofen (Ibuprofen 600 Mg Tab) 600 mg PO Q6H PRN PRN Reason: mild pain or fever Ketorolac Tromethamine (Ketorolac 30 Mg/Ml Sdv) 30 mg IVPUSH Q6H LENA Stop: 07/15/20 15:31 Last Admin: 07/15/20 05:11 Dose: 30 mg Documented by: Morphine Sulfate (Morphine 4 Mg/Ml Syringe) 4 mg IVPUSH Q2H PRN PRN Reason: Pain Naloxone HCl (Naloxone 0.4 Mg/Ml Sdv) 0.1 mg IVPUSH SEECOMMENT PRN PRN Reason: Respiratory Depression Ondansetron HCl (Ondansetron 4 Mg/2 Ml Sdv) 4 mg IVPUSH ONETIME PRN PRN Reason: Nausea/Vomiting Oxycodone/Acetaminophen (Acetaminophen/Oxycodone 325-5 Mg Tab) 1 tab PO Q4H PRN PRN Reason: Pain (moderate 4-6) Oxycodone/Acetaminophen (Acetaminophen/Oxycodone 325-5 Mg Tab) 2 tab PO Q4H PRN PRN Reason: Pain (severe 7-10) Last Admin: 07/15/20 05:24 Dose: 2 tab Documented by: Discontinued Medications Carboprost Tromethamine (Carboprost Tromethamine 250 Mcg/1 Ml Amp) Confirm Administered Dose 250 mcg .ROUTE .STK-MED ONE Stop: 07/14/20 20:06 Cefazolin Sodium (Cefazolin 1 Gm Vial) Confirm Administered Dose 2 gm .ROUTE .STK-MED ONE Stop: 07/14/20 20:15 Citric Acid/Sodium Citrate (Citric Acid/Sodium Citrate Solution 30 Ml Cup) 30 ml PO ONETIME ONE Stop: 07/14/20 18:39 Last Admin: 07/14/20 19:31 Dose: 30 ml Documented by: Ephedrine Sulfate (Ephedrine 50 Mg/Ml Sdv) Confirm Administered Dose 50 mg .ROUTE .STK-MED ONE Stop: 07/14/20 20:15 Fentanyl (Fentanyl 100 Mcg/2 Ml Sdv) Confirm Administered Dose 100 mcg .ROUTE .STK-MED ONE Stop: 07/14/20 20:50 Cefazolin Sodium/Dextrose 2 gm (/ Premix) 50 mls @ 100 mls/hr IV ONETIME ONE Stop: 07/14/20 19:07 Lactated Ringer's (Ringers, Lactated) 1,000 mls @ 125 mls/hr IV ASDIRECTED [facility] Last Admin: 07/14/20 19:31 Dose: 999 mls/hr Documented by: Lactated Ringer's (Ringers, Lactated) Confirm Administered Dose 2,000 mls @ as directed .ROUTE .STK-MED ONE Stop: 07/14/20 20:15 Dextrose/Lactated Ringer's (Dextrose 5%-Lactated Ringers) 1,000 mls @ 125 mls/hr IV ASDIRECTED [facility] Stop: 07/15/20 06:42 Last Admin: 07/15/20 01:11 Dose: 125 mls/hr Documented by: Lactated Ringer's (Ringers, Lactated) 500 mls @ 999 mls/hr IV .BOLUS ONE Stop: 07/15/20 00:43 Last Admin: 07/15/20 00:36 Dose: 999 mls/hr Documented by: Ibuprofen (Ibuprofen 600 Mg Tab) 600 mg PO Q6H PRN PRN Reason: mild pain or fever Ketorolac Tromethamine (Ketorolac 30 Mg/Ml Sdv) Confirm Administered Dose 30 mg .ROUTE .STK-MED ONE Stop: 07/14/20 20:15 Methylergonovine Maleate (Methylergonovine 0.2 Mg/1 Ml Amp) Confirm Administered Dose 0.2 mg .ROUTE .STK-MED ONE Stop: 07/14/20 20:06 Metoclopramide HCl (Metoclopramide 10 Mg/2 Ml Sdv) 10 mg IVPUSH ONETIME ONE Stop: 07/14/20 18:39 Last Admin: 07/14/20 19:31 Dose: 10 mg Documented by: Miscellaneous Medication (Phenylephrine Hcl In 0.9% Nacl 1 Mg/10 Ml Syringe) Confirm Administered Dose 1 mg .ROUTE .STK-MED ONE Stop: 07/14/20 20:15 Miscellaneous Medication (Phenylephrine Hcl In 0.9% Nacl 1 Mg/10 Ml Syringe) 0 mg IVPUSH ONETIME ONE Stop: 07/14/20 20:32 Morphine Sulfate (Morphine Pf 10 Mg/10 Ml Sdv) Confirm Administered Dose 10 mg .ROUTE .STK-MED ONE Stop: 07/14/20 20:15 Ondansetron HCl (Ondansetron 4 Mg/2 Ml Sdv) Confirm Administered Dose 4 mg .ROUTE .STK-MED ONE Stop: 07/14/20 20:15 Oxytocin (Oxytocin 10 Units/1 Ml Sdv) Confirm Administered Dose 20 unit .ROUTE .STK-MED ONE Stop: 07/14/20 20:15 Sodium Chloride (Sodium Chloride 0.9% 10 Ml Syringe) 10 ml FLUSH ASDIRECTED PRN PRN Reason: Keep Vein Open - Interaction Disposition, : [place] to Nursery Infant Feeding: Bottle Fed Infant Support Person: Friend - Recovery Exam Fundal Tone: Firm Fundal Level: At Umbilicus Fundal Placement: Midline Lochia Amount: Small Lochia Color: Rubra/Red Bladder Status: Indwelling Catheter in Place Urinary Elimination: Indwelling Catheter - Exam General: Alert, Oriented, Cooperative Lungs: Clear to Auscultation, Normal Respiratory Effort Cardiovascular: Regular Rate, Regular Rhythm GI/Abdominal Exam: Soft, Tender (appropriate post op) Extremities: Normal Inspection Skin: Warm, Dry, Intact Wound/Incisions: Healing Well, No Drainage - Problem List & Annotations (1) Currently in third trimester with unknown gestational age SNOMED Code(s): 588927440, 675110720 Code(s): Z34.93 - ENCNTR FOR SUPRVSN OF NORMAL PREG, UNSP, THIRD TRIMESTER Status: Acute Current Visit: Yes (2) Drug use affecting SNOMED Code(s): 90939807, 058810824 Code(s): O99.320 - DRUG USE COMPLICATING , UNSPECIFIED TRIMESTER Status: Acute Current Visit: Yes Qualifiers: Trimester: third trimester Qualified Code(s): O99.323 - Drug use complicating , third trimester (3) History of delivery, currently SNOMED Code(s): 368050788, 956597832 Code(s): O34.219 - MATERNAL CARE FOR UNSP TYPE SCAR FROM PREVIOUS DEL Status: Acute Current Visit: Yes (4) Limited care SNOMED Code(s): 169031416 Code(s): O09.30 - SUPRVSN OF PREG W INSUFFICIENT ANTENAT CARE, UNSP TRIMESTER Status: Acute Current Visit: Yes Qualifiers: Trimester: third trimester Qualified Code(s): O09.33 - Supervision of with insufficient care, third trimester (5) S/P repeat low transverse SNOMED Code(s): 477344097, 31507805, 371699042, 835833039, 392491594 Code(s): Z98.891 - HISTORY OF UTERINE SCAR FROM PREVIOUS SURGERY Status: Acute Current Visit: No - Problem List Review Problem List Initiated/Reviewed/Updated: Yes - My Orders Last 24 Hours: My Active Orders 07/14/20 Breakfast Regular Diet [DIET] 07/14/20 18:38 Resuscitation Status Routine 07/14/20 18:50 RAPID PLASMA REAGIN,RPR [CHEM] Stat 07/14/20 22:43 Acetaminophen/oxyCODONE [Percocet 325-5 MG] 1 tab PO Q4H PRN Acetaminophen/oxyCODONE [Percocet 325-5 MG] 2 tab PO Q4H PRN Docusate Sodium [Colace] 100 mg PO Q12H PRN Naloxone [Narcan] 0.1 mg IVPUSH SEECOMMENT PRN diphenhydrAMINE [Benadryl] 25 mg IVPUSH Q6H PRN 07/14/20 22:43 Activity as Tolerated [RC] .Routine Antiembolic Devices [RC] PER UNIT ROUTINE Communication Order [RC] PER UNIT ROUTINE Intake and Output [RC] Q4H May Shower [RC] PER UNIT ROUTINE Notify Provider Intake and Out [RC] ASDIRECTED RT Incentive Spirometry [RC] Q2HWA Vital Signs [RC] PER UNIT ROUTINE Assess Lochia [WOMSER] Per Unit Routine Assess Uterine Involution [WOMSER] Per Unit Routine Breast Pump [WOMSER] Per Unit Routine Peripheral IV Discontinue [OM.PC] Routine Sequential Compression Device [OM.PC] Per Unit Routine 07/15/20 03:30 Ketorolac [Toradol] 30 mg IVPUSH Q6H 07/15/20 08:34 Morphine 4 mg IVPUSH Q2H PRN 07/15/20 08:43 Lactated Ringers [Ringers, Lactated] 500 ml IV .BOLUS 07/15/20 08:45 OPIATE CONF (FOUR DRUGS), UR Routine 07/15/20 12:00 CBC W/O DIFF,HEMOGRAM [HEME] Timed 07/15/20 21:00 Ibuprofen [Motrin] 600 mg PO Q6H PRN 07/15/20 21:24 Urinary Catheter Removal [RC] Per Unit Routine - Assessment Assessment:: POD#1 - Plan Plan:: Routine cares Bottle feeding Pain has been difficult to manage. Likely due to patient's opiate use prior to delivery. Will order morphine for breakthrough pain Discharge in 1-2 days
--- NOTE | 2020-07-15 16:11 | PCM.SN.2 ---
- Free Text/Narrative Note: 1600 Patient with some low UOP's throughout the night and day. Has received several 500 cc boluses. Urine was dark, but now more cotton colored. CBC and BMP done around noon both appropriate. Exam reassuring. Discussed with patient and family findings and management going forward. They agree. Telma Cosme MD
[2020-07-15] MEDS: Ibuprofen 600 MG Tab PO PRN (22:31)
[2020-07-16] MEDS: Acetaminophen/oxyCODONE 325-5 MG Tab PO PRN ×2 (02:06→09:28)
[2020-07-16] MEDS: Lactated Ringers 1,000 ML IV SCH ×2 (02:10→07:28)
[2020-07-16] MEDS: Morphine 4 MG/ML Syringe IVPUSH PRN ×2 (02:10→05:25)
[2020-07-16] MEDS: Ibuprofen 600 MG Tab PO PRN (05:24)
--- NOTE | 2020-07-16 07:14 | PCM.PNPP ---
- General Info Date of Service: 07/16/20 Functional Status: Reports: Pain Controlled, Tolerating Diet, Ambulating, Urinating (Urine output picked up throughout night ) - Review of Systems General: Reports: No Symptoms Pulmonary: Reports: No Symptoms Cardiovascular: Reports: No Symptoms Gastrointestinal: Reports: Abdominal Pain (incisional pain somewhat more than she would expect ) Genitourinary: Reports: No Symptoms Musculoskeletal: Reports: No Symptoms - Patient Data Vital Signs - Most Recent: Last Vital Signs Temp 36.1 C 07/16/20 02:23 Pulse 69 07/16/20 02:23 Resp 13 07/16/20 02:23 BP 122/73 07/16/20 02:23 Pulse Ox 96 07/16/20 02:23 Weight - Most Recent: 106.141 kg I&O - Last 24 Hours: Intake & Output 07/15/20 07/16/20 07/16/20 22:59 06:59 14:59 Intake Total 1480 1800 Output Total 620 850 Balance 860 950 Lab Results - Last 24 Hours: Laboratory Results - last 24 hr 07/14/20 07/15/20 07/15/20 Range/Units 18:50 12:00 12:00 WBC 13.03 H (3.98-10.04) K/mm3 RBC 3.52 L (3.98-5.22) M/mm3 Hgb 9.1 L D (11.2-15.7) gm/dl Hct 28.9 L (34.1-44.9) % MCV 82.1 (79.4-94.8) fl MCH 25.9 (25.6-32.2) pg MCHC 31.5 L (32.2-35.5) g/dl RDW Std Deviation 39.5 (36.4-46.3) fL Plt Count 224 (182-369) K/mm3 MPV 11.1 (9.4-12.3) fl Sodium 140 (136-145) mEq/L Potassium 3.9 (3.5-5.1) mEq/L Chloride 107 (98-107) mEq/L Carbon Dioxide 26 (21-32) mEq/L Anion Gap 10.9 (5-15) BUN 11 (7-18) mg/dL Creatinine 0.5 L (0.55-1.02) mg/dL Est Cr Clr Drug Dosing 130.44 mL/min Estimated GFR (MDRD) > 60 (>60) mL/min BUN/Creatinine Ratio 22.0 H (14-18) Glucose 105 (74-106) mg/dL Calcium 8.6 (8.5-10.1) mg/dL Urine Color (Yellow) Urine Appearance (Clear) Urine pH (5.0-8.0) Ur Specific [place] (1.005-1.030) Urine Protein (Negative) Urine Glucose (UA) (Negative) Urine Ketones (Negative) Urine Occult Blood (Negative) Urine Nitrite (Negative) Urine Bilirubin (Negative) Urine Urobilinogen (0.2-1.0) Ur Leukocyte Esterase (Negative) Urine RBC (0-5) /hpf Urine WBC (0-5) /hpf Ur Epithelial Cells (0-5) /hpf Calcium Oxalate Crystal (NONE) Urine Bacteria (FEW) /hpf Urine Mucus (FEW) /hpf Ur Random Creatinine (30.0-125.0) mg/dL RPR Non-reactive (NONREACTIVE) 07/15/20 07/15/20 07/16/20 Range/Units 18:30 18:30 05:01 WBC 11.24 H (3.98-10.04) K/mm3 RBC 3.30 L (3.98-5.22) M/mm3 Hgb 8.4 L (11.2-15.7) gm/dl Hct 27.3 L (34.1-44.9) % MCV 82.7 (79.4-94.8) fl MCH 25.5 L (25.6-32.2) pg MCHC 30.8 L (32.2-35.5) g/dl RDW Std Deviation 39.2 (36.4-46.3) fL Plt Count 196 (182-369) K/mm3 MPV 12.1 (9.4-12.3) fl Sodium (136-145) mEq/L Potassium (3.5-5.1) mEq/L Chloride (98-107) mEq/L Carbon Dioxide (21-32) mEq/L Anion Gap (5-15) BUN (7-18) mg/dL Creatinine (0.55-1.02) mg/dL Est Cr Clr Drug Dosing mL/min Estimated GFR (MDRD) (>60) mL/min BUN/Creatinine Ratio (14-18) Glucose (74-106) mg/dL Calcium (8.5-10.1) mg/dL Urine Color Yessi H (Yellow) Urine Appearance Slt cloudy H (Clear) Urine pH 6.5 (5.0-8.0) Ur Specific [place] > or = 1.030 (1.005-1.030) Urine Protein 2+ H (Negative) Urine Glucose (UA) Negative (Negative) Urine Ketones Negative (Negative) Urine Occult Blood 3+ H (Negative) Urine Nitrite Negative (Negative) Urine Bilirubin 1+ H (Negative) Urine Urobilinogen 2.0 H (0.2-1.0) Ur Leukocyte Esterase Trace H (Negative) Urine RBC >100 H (0-5) /hpf Urine WBC 0-5 (0-5) /hpf Ur Epithelial Cells 0-5 (0-5) /hpf Calcium Oxalate Crystal Few H (NONE) Urine Bacteria Moderate H (FEW) /hpf Urine Mucus Moderate H (FEW) /hpf Ur Random Creatinine 185.1 H (30.0-125.0) mg/dL RPR (NONREACTIVE) 07/16/20 Range/Units 05:01 WBC (3.98-10.04) K/mm3 RBC (3.98-5.22) M/mm3 Hgb (11.2-15.7) gm/dl Hct (34.1-44.9) % MCV (79.4-94.8) fl MCH (25.6-32.2) pg MCHC (32.2-35.5) g/dl RDW Std Deviation (36.4-46.3) fL Plt Count (182-369) K/mm3 MPV (9.4-12.3) fl Sodium 141 (136-145) mEq/L Potassium 4.1 (3.5-5.1) mEq/L Chloride 108 H (98-107) mEq/L Carbon Dioxide 24 (21-32) mEq/L Anion Gap 13.1 (5-15) BUN 13 (7-18) mg/dL Creatinine 0.6 (0.55-1.02) mg/dL Est Cr Clr Drug Dosing 108.70 mL/min Estimated GFR (MDRD) > 60 (>60) mL/min BUN/Creatinine Ratio 21.7 H (14-18) Glucose 84 (74-106) mg/dL Calcium 8.4 L (8.5-10.1) mg/dL Urine Color (Yellow) Urine Appearance (Clear) Urine pH (5.0-8.0) Ur Specific [place] (1.005-1.030) Urine Protein (Negative) Urine Glucose (UA) (Negative) Urine Ketones (Negative) Urine Occult Blood (Negative) Urine Nitrite (Negative) Urine Bilirubin (Negative) Urine Urobilinogen (0.2-1.0) Ur Leukocyte Esterase (Negative) Urine RBC (0-5) /hpf Urine WBC (0-5) /hpf Ur Epithelial Cells (0-5) /hpf Calcium Oxalate Crystal (NONE) Urine Bacteria (FEW) /hpf Urine Mucus (FEW) /hpf Ur Random Creatinine (30.0-125.0) mg/dL RPR (NONREACTIVE) Med Orders - Current: Current Medications Diphenhydramine HCl (Diphenhydramine 50 Mg/Ml Sdv) 25 mg IVPUSH Q6H PRN PRN Reason: Itching or Nausea Docusate Sodium (Docusate Sodium 100 Mg Cap) 100 mg PO Q12H PRN PRN Reason: Constipation Last Admin: 07/15/20 20:19 Dose: 100 mg Documented by: Ibuprofen (Ibuprofen 600 Mg Tab) 600 mg PO Q6H PRN PRN Reason: mild pain or fever Last Admin: 07/16/20 05:24 Dose: 600 mg Documented by: Naloxone HCl (Naloxone 0.4 Mg/Ml Sdv) 0.1 mg IVPUSH SEECOMMENT PRN PRN Reason: Respiratory Depression Ondansetron HCl (Ondansetron 4 Mg/2 Ml Sdv) 4 mg IVPUSH ONETIME PRN PRN Reason: Nausea/Vomiting Oxycodone/Acetaminophen (Acetaminophen/Oxycodone 325-5 Mg Tab) 1 tab PO Q4H PRN PRN Reason: Pain (moderate 4-6) Oxycodone/Acetaminophen (Acetaminophen/Oxycodone 325-5 Mg Tab) 2 tab PO Q4H PRN PRN Reason: Pain (severe 7-10) Last Admin: 07/16/20 02:06 Dose: 2 tab Documented by: Discontinued Medications Carboprost Tromethamine (Carboprost Tromethamine 250 Mcg/1 Ml Amp) Confirm Administered Dose 250 mcg .ROUTE .STK-MED ONE Stop: 07/14/20 20:06 Cefazolin Sodium (Cefazolin 1 Gm Vial) Confirm Administered Dose 2 gm .ROUTE .[facility] ONE Stop: 07/14/20 20:15 Citric Acid/Sodium Citrate (Citric Acid/Sodium Citrate Solution 30 Ml Cup) 30 ml PO ONETIME ONE Stop: 07/14/20 18:39 Last Admin: 07/14/20 19:31 Dose: 30 ml Documented by: Diphenhydramine HCl (Diphenhydramine 50 Mg/Ml Sdv) 25 mg IVPUSH Q6H PRN PRN Reason: pruritis Ephedrine Sulfate (Ephedrine 50 Mg/Ml Sdv) Confirm Administered Dose 50 mg .ROUTE .[facility] ONE Stop: 07/14/20 20:15 Ephedrine Sulfate (Ephedrine 50 Mg/Ml Sdv) 5 mg IVPUSH ASDIRECTED PRN PRN Reason: Hypotension Fentanyl (Fentanyl 100 Mcg/2 Ml Sdv) 50 mcg IVPUSH Q20M PRN PRN Reason: Pain Fentanyl (Fentanyl 100 Mcg/2 Ml Sdv) Confirm Administered Dose 100 mcg .ROUTE .[facility] ONE Stop: 07/14/20 20:50 Hydromorphone HCl (Hydromorphone 0.5 Mg/0.5 Ml Syringe) 0.5 mg IVPUSH Q10M PRN PRN Reason: Pain (severe 7-10) Cefazolin Sodium/Dextrose 2 gm (/ Premix) 50 mls @ 100 mls/hr IV ONETIME ONE Stop: 07/14/20 19:07 Last Admin: 07/15/20 23:41 Dose: Not Given Documented by: Lactated Ringer's (Ringers, Lactated) 1,000 mls @ 125 mls/hr IV ASDIRECTED [facility] Last Admin: 07/14/20 19:31 Dose: 999 mls/hr Documented by: Lactated Ringer's (Ringers, Lactated) Confirm Administered Dose 2,000 mls @ as directed .ROUTE .[facility] ONE Stop: 07/14/20 20:15 Dextrose/Lactated Ringer's (Dextrose 5%-Lactated Ringers) 1,000 mls @ 125 mls/hr IV ASDIRECTED [facility] Stop: 07/15/20 06:42 Last Admin: 07/15/20 01:11 Dose: 125 mls/hr Documented by: Lactated Ringer's (Ringers, Lactated) 500 mls @ 999 mls/hr IV .BOLUS ONE Stop: 07/15/20 00:43 Last Admin: 07/15/20 00:36 Dose: 999 mls/hr Documented by: Lactated Ringer's (Ringers, Lactated) 500 mls @ 500 mls/hr IV .BOLUS ONE Stop: 07/15/20 09:42 Last Admin: 07/15/20 09:07 Dose: 500 mls/hr Documented by: Lactated Ringer's (Ringers, Lactated) 500 mls @ 500 mls/hr IV .BOLUS ONE Stop: 07/15/20 16:27 Last Admin: 07/15/20 15:43 Dose: 500 mls/hr Documented by: Lactated Ringer's (Ringers, Lactated) 1,000 mls @ 150 mls/hr IV ASDIRECTED [facility] Last Admin: 07/16/20 02:10 Dose: 150 mls/hr Documented by: Ibuprofen (Ibuprofen 600 Mg Tab) 600 mg PO Q6H PRN PRN Reason: mild pain or fever Ketorolac Tromethamine (Ketorolac 30 Mg/Ml Sdv) Confirm Administered Dose 30 mg .ROUTE .STK-MED ONE Stop: 07/14/20 20:15 Ketorolac Tromethamine (Ketorolac 30 Mg/Ml Sdv) 30 mg IVPUSH Q6H LENA Stop: 07/15/20 15:31 Last Admin: 07/15/20 14:39 Dose: 30 mg Documented by: Methylergonovine Maleate (Methylergonovine 0.2 Mg/1 Ml Amp) Confirm Administered Dose 0.2 mg .ROUTE .STK-MED ONE Stop: 07/14/20 20:06 Metoclopramide HCl (Metoclopramide 10 Mg/2 Ml Sdv) 10 mg IVPUSH ONETIME ONE Stop: 07/14/20 18:39 Last Admin: 07/14/20 19:31 Dose: 10 mg Documented by: Miscellaneous Medication (Phenylephrine Hcl In 0.9% Nacl 1 Mg/10 Ml Syringe) Confirm Administered Dose 1 mg .ROUTE .STK-MED ONE Stop: 07/14/20 20:15 Miscellaneous Medication (Phenylephrine Hcl In 0.9% Nacl 1 Mg/10 Ml Syringe) 0 mg IVPUSH ONETIME ONE Stop: 07/14/20 20:32 Last Admin: 07/15/20 20:01 Dose: Not Given Documented by: Morphine Sulfate (Morphine Pf 10 Mg/10 Ml Sdv) Confirm Administered Dose 10 mg .ROUTE .STK-MED ONE Stop: 07/14/20 20:15 Morphine Sulfate (Morphine 4 Mg/Ml Syringe) 4 mg IVPUSH Q2H PRN PRN Reason: Pain Last Admin: 07/16/20 05:25 Dose: 4 mg Documented by: Ondansetron HCl (Ondansetron 4 Mg/2 Ml Sdv) Confirm Administered Dose 4 mg .ROUTE .STK-MED ONE Stop: 07/14/20 20:15 Oxytocin (Oxytocin 10 Units/1 Ml Sdv) Confirm Administered Dose 20 unit .ROUTE .STK-MED ONE Stop: 07/14/20 20:15 Sodium Chloride (Sodium Chloride 0.9% 10 Ml Syringe) 10 ml FLUSH ASDIRECTED PRN PRN Reason: Keep Vein Open - Infant Interaction Disposition, : to Nursery Feeding: Bottle Fed Support Person: Significant Other - Recovery Exam Fundal Tone: Firm Fundal Level: At Umbilicus Fundal Placement: Midline Lochia Amount: Scant, Small Lochia Color: Rubra/Red Perineum Description: Intact, Minimal Bruising/Swelling Episiotomy/Laceration: None Bladder Status: Voiding Urinary Elimination: Voided - Exam General: Alert, Oriented, Cooperative Lungs: Clear to Auscultation, Normal Respiratory Effort Cardiovascular: Regular Rate, Regular Rhythm GI/Abdominal Exam: Soft, Tender (appropriate post op) Extremities: Normal Inspection, Pedal Edema Skin: Warm, Dry, Intact Wound/Incisions: Healing Well, No Drainage - Problem List & Annotations (1) Currently in third trimester with unknown gestational age SNOMED Code(s): 869974350, 196626833 Code(s): Z34.93 - ENCNTR FOR SUPRVSN OF NORMAL PREG, UNSP, THIRD TRIMESTER Status: Acute Current Visit: Yes (2) Drug use affecting SNOMED Code(s): 41148332, 049485535 Code(s): O99.320 - DRUG USE COMPLICATING , UNSPECIFIED TRIMESTER Status: Acute Current Visit: Yes Qualifiers: Trimester: third trimester Qualified Code(s): O99.323 - Drug use complicating , third trimester (3) History of delivery, currently SNOMED Code(s): 107552308, 476497544 Code(s): O34.219 - MATERNAL CARE FOR UNSP TYPE SCAR FROM PREVIOUS DEL Status: Acute Current Visit: Yes (4) Limited care SNOMED Code(s): 784799702 Code(s): O09.30 - SUPRVSN OF PREG W INSUFFICIENT ANTENAT CARE, UNSP TRIMESTER Status: Acute Current Visit: Yes Qualifiers: Trimester: third trimester Qualified Code(s): O09.33 - Supervision of pre gnancy with insufficient care, third trimester (5) S/P repeat low transverse SNOMED Code(s): 430212414, 51016710, 038154638, 744504798, 293367740 Code(s): Z98.891 - HISTORY OF UTERINE SCAR FROM PREVIOUS SURGERY Status: Acute Current Visit: No - Problem List Review Problem List Initiated/Reviewed/Updated: Yes - My Orders Last 24 Hours: My Active Orders 07/15/20 08:45 OPIATE CONF (FOUR DRUGS), UR Routine 07/15/20 18:47 Admission Status [Patient Status] [ADT] Routine 07/15/20 21:00 Ibuprofen [Motrin] 600 mg PO Q6H PRN - Assessment Assessment:: POD#2 - Plan Plan:: Routine cares Bottle feeding Continue Percocet for pain control UOP has picked up overnight. Labs all normal. Will discontinue supplemental IVF Discharge todya vs tomorrow depending upon infant cares
--- NOTE | 2020-07-16 09:36 | PCM.DCSUM1 ---
Discharge Summary - Discharge Data Discharge Date: 07/16/20 Discharge Disposition: Home, Self-Care 01 Condition: Good - Referral to Home Health Primary Care Physician: Telma Cosme MD - Discharge Diagnosis/Problem(s) (1) Currently in third trimester with unknown gestational age SNOMED Code(s): 757452833, 445713148 ICD Code: Z34.93 - ENCNTR FOR SUPRVSN OF NORMAL PREG, UNSP, THIRD TRIMESTER Status: Acute Current Visit: Yes (2) Drug use affecting SNOMED Code(s): 13837270, 520561121 ICD Code: O99.320 - DRUG USE COMPLICATING , UNSPECIFIED TRIMESTER Status: Acute Current Visit: Yes Qualifiers: Trimester: third trimester Qualified Code(s): O99.323 - Drug use complicating , third trimester (3) History of delivery, currently SNOMED Code(s): 234131826, 676838958 ICD Code: O34.219 - MATERNAL CARE FOR UNSP TYPE SCAR FROM PREVIOUS DEL Status: Acute Current Visit: Yes (4) Limited care SNOMED Code(s): 921890489 ICD Code: O09.30 - SUPRVSN OF PREG W INSUFFICIENT ANTENAT CARE, UNSP TRIMESTER Status: Acute Current Visit: Yes Qualifiers: Trimester: third trimester Qualified Code(s): O09.33 - Supervision of with insufficient care, third trimester (5) S/P repeat low transverse SNOMED Code(s): 878189014, 53252607, 668947307, 725131093, 741312411 ICD Code: Z98.891 - HISTORY OF UTERINE SCAR FROM PREVIOUS SURGERY Status: Acute Current Visit: No - Patient Summary/Data Operative Procedure(s) Performed: Repeat low transverse Complications: None Consults: Social Work Recommended Follow-up Testing/Procedures: Follow up in 2-3 weeks for check Hospital Course: Patient is a 40 y/o , LC7 woman somewhere between 37-41 weeks (estimated between LMP and 3rd trimester US) who had history of 5 prior c-sections who presented with concerns of abdominal pain/early labor. Patient noted in course of initial intake that she had been using Fentanyl in the 3 weeks prior to delivery. States at first this was as much as 30 tablets per day, but that use decreased to only about 3 a day with last use the day prior to admission. Reviewed extensively with patient and her support person as that she only alex irregularly it would be best to transfer to [facility] for delivery given high likelihood of withdrawal in her baby. Patient did refuse transfer. Was taken for her 6th . See operate note for full details. did have some low urine output which eventually responded to fluid resuscitation. Requested discharged on POD#2 due to infant transfer to NICU. SW attempted to aid in patient care/treatment follow up. See their notes for further documentation - Patient Instructions Diet: Regular Diet as Tolerated Activity: No Lifting Over 10 Pounds Activity, Other: Pelvic rest for 6 weeks Driving: Do Not Drive (While taking Percocet ) Showering/Bathing: May Shower, No Tub Bathing/Swimming Wound/Incision Care: Keep Operative Site/Wound Site Clean and Dry Notify Provider of: Fever, Increased Pain, Swelling and Redness, Drainage, Nausea and/or Vomiting - Discharge Plan *PRESCRIPTION DRUG MONITORING PROGRAM REVIEWED*: No *COPY OF PRESCRIPTION DRUG MONITORING REPORT IN PATIENT SRI: No Prescriptions/Med Rec: RX: Acetaminophen/oxyCODONE [Percocet 325-5 MG] 1 - 2 tab PO Q4H PRN #25 tablet PRN Reason: Pain (Severe 7-10) Home Medications: Home Meds RX: Acetaminophen/oxyCODONE [Percocet 325-5 MG] 1 - 2 tab PO Q4H PRN #25 tablet 07/16/20 [Rx] RX: Docusate Sodium [Colace] 100 mg PO Q12H PRN cap 07/16/20 [Rx] RX: Ibuprofen [Motrin] 600 mg PO Q6H PRN tablet 07/16/20 [Rx] Patient Handouts: Care After Delivery Referrals: Telma Cosme MD [Primary Care Provider] - (3 weeks for post op ) - Discharge Summary/Plan Comment DC Time >30 min.: No - Patient Data Vitals - Most Recent: Last Vital Signs Temp 36.1 C 07/16/20 02:23 Pulse 69 07/16/20 02:23 Resp 13 07/16/20 02:23 BP 122/73 07/16/20 02:23 Pulse Ox 96 07/16/20 02:23 Weight - Most Recent: 106.141 kg I&O - Last 24 hours: Intake & Output 07/15/20 07/16/20 07/16/20 22:59 06:59 14:59 Intake Total 1480 1800 Output Total 620 850 Balance 860 950 Lab Results - Last 24 hrs: Laboratory Results - last 24 hr 07/14/20 07/15/20 07/15/20 Range/Units 18:50 12:00 12:00 WBC 13.03 H (3.98-10.04) K/mm3 RBC 3.52 L (3.98-5.22) M/mm3 Hgb 9.1 L D (11.2-15.7) gm/dl Hct 28.9 L (34.1-44.9) % MCV 82.1 (79.4-94.8) fl MCH 25.9 (25.6-32.2) pg MCHC 31.5 L (32.2-35.5) g/dl RDW Std Deviation 39.5 (36.4-46.3) fL Plt Count 224 (182-369) K/mm3 MPV 11.1 (9.4-12.3) fl Sodium 140 (136-145) mEq/L Potassium 3.9 (3.5-5.1) mEq/L Chloride 107 (98-107) mEq/L Carbon Dioxide 26 (21-32) mEq/L Anion Gap 10.9 (5-15) BUN 11 (7-18) mg/dL Creatinine 0.5 L (0.55-1.02) mg/dL Est Cr Clr Drug Dosing 130.44 mL/min Estimated GFR (MDRD) > 60 (>60) mL/min BUN/Creatinine Ratio 22.0 H (14-18) Glucose 105 (74-106) mg/dL Calcium 8.6 (8.5-10.1) mg/dL Urine Color (Yellow) Urine Appearance (Clear) Urine pH (5.0-8.0) Ur Specific [place] (1.005-1.030) Urine Protein (Negative) Urine Glucose (UA) (Negative) Urine Ketones (Negative) Urine Occult Blood (Negative) Urine Nitrite (Negative) Urine Bilirubin (Negative) Urine Urobilinogen (0.2-1.0) Ur Leukocyte Esterase (Negative) Urine RBC (0-5) /hpf Urine WBC (0-5) /hpf Ur Epithelial Cells (0-5) /hpf Calcium Oxalate Crystal (NONE) Urine Bacteria (FEW) /hpf Urine Mucus (FEW) /hpf Ur Random Creatinine (30.0-125.0) mg/dL RPR Non-reactive (NONREACTIVE) 07/15/20 07/15/20 07/16/20 Range/Units 18:30 18:30 05:01 WBC 11.24 H (3.98-10.04) K/mm3 RBC 3.30 L (3.98-5.22) M/mm3 Hgb 8.4 L (11.2-15.7) gm/dl Hct 27.3 L (34.1-44.9) % MCV 82.7 (79.4-94.8) fl MCH 25.5 L (25.6-32.2) pg MCHC 30.8 L (32.2-35.5) g/dl RDW Std Deviation 39.2 (36.4-46.3) fL Plt Count 196 (182-369) K/mm3 MPV 12.1 (9.4-12.3) fl Sodium (136-145) mEq/L Potassium (3.5-5.1) mEq/L Chloride (98-107) mEq/L Carbon Dioxide (21-32) mEq/L Anion Gap (5-15) BUN (7-18) mg/dL Creatinine (0.55-1.02) mg/dL Est Cr Clr Drug Dosing mL/min Estimated GFR (MDRD) (>60) mL/min BUN/Creatinine Ratio (14-18) Glucose (74-106) mg/dL Calcium (8.5-10.1) mg/dL Urine Color Yessi H (Yellow) Urine Appearance Slt cloudy H (Clear) Urine pH 6.5 (5.0-8.0) Ur Specific [place] > or = 1.030 (1.005-1.030) Urine Protein 2+ H (Negative) Urine Glucose (UA) Negative (Negative) Urine Ketones Negative (Negative) Urine Occult Blood 3+ H (Negative) Urine Nitrite Negative (Negative) Urine Bilirubin 1+ H (Negative) Urine Urobilinogen 2.0 H (0.2-1.0) Ur Leukocyte Esterase Trace H (Negative) Urine RBC >100 H (0-5) /hpf Urine WBC 0-5 (0-5) /hpf Ur Epithelial Cells 0-5 (0-5) /hpf Calcium Oxalate Crystal Few H (NONE) Urine Bacteria Moderate H (FEW) /hpf Urine Mucus Moderate H (FEW) /hpf Ur Random Creatinine 185.1 H (30.0-125.0) mg/dL RPR (NONREACTIVE) 07/16/20 Range/Units 05:01 WBC (3.98-10.04) K/mm3 RBC (3.98-5.22) M/mm3 Hgb (11.2-15.7) gm/dl Hct (34.1-44.9) % MCV (79.4-94.8) fl MCH (25.6-32.2) pg MCHC (32.2-35.5) g/dl RDW Std Deviation (36.4-46.3) fL Plt Count (182-369) K/mm3 MPV (9.4-12.3) fl Sodium 141 (136-145) mEq/L Potassium 4.1 (3.5-5.1) mEq/L Chloride 108 H (98-107) mEq/L Carbon Dioxide 24 (21-32) mEq/L Anion Gap 13.1 (5-15) BUN 13 (7-18) mg/dL Creatinine 0.6 (0.55-1.02) mg/dL Est Cr Clr Drug Dosing 108.70 mL/min Estimated GFR (MDRD) > 60 (>60) mL/min BUN/Creatinine Ratio 21.7 H (14-18) Glucose 84 (74-106) mg/dL Calcium 8.4 L (8.5-10.1) mg/dL Urine Color (Yellow) Urine Appearance (Clear) Urine pH (5.0-8.0) Ur Specific [place] (1.005-1.030) Urine Protein (Negative) Urine Glucose (UA) (Negative) Urine Ketones (Negative) Urine Occult Blood (Negative) Urine Nitrite (Negative) Urine Bilirubin (Negative) Urine Urobilinogen (0.2-1.0) Ur Leukocyte Esterase (Negative) Urine RBC (0-5) /hpf Urine WBC (0-5) /hpf Ur Epithelial Cells (0-5) /hpf Calcium Oxalate Crystal (NONE) Urine Bacteria (FEW) /hpf Urine Mucus (FEW) /hpf Ur Random Creatinine (30.0-125.0) mg/dL RPR (NONREACTIVE) Med Orders - Current: Current Medications Diphenhydramine HCl (Diphenhydramine 50 Mg/Ml Sdv) 25 mg IVPUSH Q6H PRN PRN Reason: Itching or Nausea Docusate Sodium (Docusate Sodium 100 Mg Cap) 100 mg PO Q12H PRN PRN Reason: Constipation Last Admin: 07/15/20 20:19 Dose: 100 mg Documented by: Ibuprofen (Ibuprofen 600 Mg Tab) 600 mg PO Q6H PRN PRN Reason: mild pain or fever Last Admin: 07/16/20 05:24 Dose: 600 mg Documented by: Naloxone HCl (Naloxone 0.4 Mg/Ml Sdv) 0.1 mg IVPUSH SEECOMMENT PRN PRN Reason: Respiratory Depression Ondansetron HCl (Ondansetron 4 Mg/2 Ml Sdv) 4 mg IVPUSH ONETIME PRN PRN Reason: Nausea/Vomiting Oxycodone/Acetaminophen (Acetaminophen/Oxycodone 325-5 Mg Tab) 1 tab PO Q4H PRN PRN Reason: Pain (moderate 4-6) Oxycodone/Acetaminophen (Acetaminophen/Oxycodone 325-5 Mg Tab) 2 tab PO Q4H PRN PRN Reason: Pain (severe 7-10) Last Admin: 07/16/20 09:28 Dose: 2 tab Documented by: Discontinued Medications Carboprost Tromethamine (Carboprost Tromethamine 250 Mcg/1 Ml Amp) Confirm Administered Dose 250 mcg .ROUTE .STK-MED ONE Stop: 07/14/20 20:06 Cefazolin Sodium (Cefazolin 1 Gm Vial) Confirm Administered Dose 2 gm .ROUTE .STK-MED ONE Stop: 07/14/20 20:15 Citric Acid/Sodium Citrate (Citric Acid/Sodium Citrate Solution 30 Ml Cup) 30 ml PO ONETIME ONE Stop: 07/14/20 18:39 Last Admin: 07/14/20 19:31 Dose: 30 ml Documented by: Diphenhydramine HCl (Diphenhydramine 50 Mg/Ml Sdv) 25 mg IVPUSH Q6H PRN PRN Reason: pruritis Ephedrine Sulfate (Ephedrine 50 Mg/Ml Sdv) Confirm Administered Dose 50 mg .ROUTE .STK-MED ONE Stop: 07/14/20 20:15 Ephedrine Sulfate (Ephedrine 50 Mg/Ml Sdv) 5 mg IVPUSH ASDIRECTED PRN PRN Reason: Hypotension Fentanyl (Fentanyl 100 Mcg/2 Ml Sdv) 50 mcg IVPUSH Q20M PRN PRN Reason: Pain Fentanyl (Fentanyl 100 Mcg/2 Ml Sdv) Confirm Administered Dose 100 mcg .ROUTE .STK-MED ONE Stop: 07/14/20 20:50 Hydromorphone HCl (Hydromorphone 0.5 Mg/0.5 Ml Syringe) 0.5 mg IVPUSH Q10M PRN PRN Reason: Pain (severe 7-10) Cefazolin Sodium/Dextrose 2 gm (/ Premix) 50 mls @ 100 mls/hr IV ONETIME ONE Stop: 07/14/20 19:07 Last Admin: 07/15/20 23:41 Dose: Not Given Documented by: Lactated Ringer's (Ringers, Lactated) 1,000 mls @ 125 mls/hr IV ASDIRECTED [facility] Last Admin: 07/14/20 19:31 Dose: 999 mls/hr Documented by: Lactated Ringer's (Ringers, Lactated) Confirm Administered Dose 2,000 mls @ as directed .ROUTE .STK-MED ONE Stop: 07/14/20 20:15 Dextrose/Lactated Ringer's (Dextrose 5%-Lactated Ringers) 1,000 mls @ 125 mls/hr IV ASDIRECTED [facility] Stop: 07/15/20 06:42 Last Admin: 07/15/20 01:11 Dose: 125 mls/hr Documented by: Lactated Ringer's (Ringers, Lactated) 500 mls @ 999 mls/hr IV .BOLUS ONE Stop: 07/15/20 00:43 Last Admin: 07/15/20 00:36 Dose: 999 mls/hr Documented by: Lactated Ringer's (Ringers, Lactated) 500 mls @ 500 mls/hr IV .BOLUS ONE Stop: 07/15/20 09:42 Last Admin: 07/15/20 09:07 Dose: 500 mls/hr Documented by: Lactated Ringer's (Ringers, Lactated) 500 mls @ 500 mls/hr IV .BOLUS ONE Stop: 07/15/20 16:27 Last Admin: 07/15/20 15:43 Dose: 500 mls/hr Documented by: Lactated Ringer's (Ringers, Lactated) 1,000 mls @ 150 mls/hr IV ASDIRECTED [facility] Last Admin: 07/16/20 07:28 Dose: 150 mls/hr Documented by: Ibuprofen (Ibuprofen 600 Mg Tab) 600 mg PO Q6H PRN PRN Reason: mild pain or fever Ketorolac Tromethamine (Ketorolac 30 Mg/Ml Sdv) Confirm Administered Dose 30 mg .ROUTE .STK-MED ONE Stop: 07/14/20 20:15 Ketorolac Tromethamine (Ketorolac 30 Mg/Ml Sdv) 30 mg IVPUSH Q6H [facility] Stop: 07/15/20 15:31 Last Admin: 07/15/20 14:39 Dose: 30 mg Documented by: Methylergonovine Maleate (Methylergonovine 0.2 Mg/1 Ml Amp) Confirm Administered Dose 0.2 mg .ROUTE .STK-MED ONE Stop: 07/14/20 20:06 Metoclopramide HCl (Metoclopramide 10 Mg/2 Ml Sdv) 10 mg IVPUSH ONETIME ONE Stop: 07/14/20 18:39 Last Admin: 07/14/20 19:31 Dose: 10 mg Documented by: Miscellaneous Medication (Phenylephrine Hcl In 0.9% Nacl 1 Mg/10 Ml Syringe) Confirm Administered Dose 1 mg .ROUTE .STK-MED ONE Stop: 07/14/20 20:15 Miscellaneous Medication (Phenylephrine Hcl In 0.9% Nacl 1 Mg/10 Ml Syringe) 0 mg IVPUSH ONETIME ONE Stop: 07/14/20 20:32 Last Admin: 07/15/20 20:01 Dose: Not Given Documented by: Morphine Sulfate (Morphine Pf 10 Mg/10 Ml Sdv) Confirm Administered Dose 10 mg .ROUTE .STK-MED ONE Stop: 07/14/20 20:15 Morphine Sulfate (Morphine 4 Mg/Ml Syringe) 4 mg IVPUSH Q2H PRN PRN Reason: Pain Last Admin: 07/16/20 05:25 Dose: 4 mg Documented by: Ondansetron HCl (Ondansetron 4 Mg/2 Ml Sdv) Confirm Administered Dose 4 mg .ROUTE .STK-MED ONE Stop: 07/14/20 20:15 Oxytocin (Oxytocin 10 Units/1 Ml Sdv) Confirm Administered Dose 20 unit .ROUTE .[facility] ONE Stop: 07/14/20 20:15 Sodium Chloride (Sodium Chloride 0.9% 10 Ml Syringe) 10 ml FLUSH ASDIRECTED PRN PRN Reason: Keep Vein Open
[2020-07-16 09:55] VITALS: BP 142/90; PULSE 74
== END 2020-07-16 12:15 | disposition home or self-care (01) | DRG 787 ==
LOC: EEVIPCON 18:20 → JD.OBCHECK 18:20 → JD.OB 18:21 → JD.OBCHECK 18:37 → JD.OB 18:38
PROVIDERS: ADMIT Obstetrics & Gynecology; ATTEND Obstetrics & Gynecology
PROC: 10D00Z1 Extraction of Products of Conception, Low, Open Approach (ICD-10-PCS; principal; 2020-07-14)
DX: O34.211 Maternal care for low transverse scar from previous cesarean delivery (principal); O99.324 Drug use complicating childbirth; Z37.0 Single live birth; F11.90 Opioid use, unspecified, uncomplicated; Z3A.00 Weeks of gestation of pregnancy not specified; Z20.822 Contact with and (suspected) exposure to COVID-19
CPT/HCPCS: 01961; 36415; 51701; 59025; 80048; 80053; 80306; 81001; 82570; 85027; 86592; 86850; 86900; 86901; 94762; 99140; A9270-GY; G0480; J0690; J1885; J2210; J2270; J2370; J2405; J2590; J2765; J3010; J7120; J7121; U0002